=== PATIENT | male | born 1960 | race Caucasian/White ===

== ENCOUNTER 2017-07-31 12:57 | Inpatient (IN) | payer OTHER ==
[~2017-07-31] VITALS: Ht 182.9 cm; Wt 94.6 kg
[2017-07-31] MEDS ORDERED: PIPER-TAZ 3.375 GM 50 ML IV STA (13:09)
[2017-07-31] MEDS ORDERED: SODIUM CHLORIDE 0.9% 1000ML 1,000 ML IV STA (13:09)
[2017-07-31] MEDS ORDERED: HYDROCODONE/APAP 10MG-325MG TAB PO ONE (13:15)
[2017-07-31 14:28] LABS: BASOPHILS % 0.6 % (0.0-1.0); EOSINOPHILS # (AUTO) 0.3 (0.0-0.4); EOSINOPHILS % 4.5 % (0.0-6.0); HEMATOCRIT 36.1 % (38.2-49.6); HEMOGLOBIN 12.5 g/dL (14.0-18.0); LYMPHOCYTES # (AUTO) 0.8 (1.0-3.2); LYMPHOCYTES % 11.8 % (18.0-39.1); MEAN CORPUSCULAR HEMOGLOBIN 31.5 pg (28-32); MEAN CORPUSCULAR HGB CONC 34.6 g/dL (31-35); MEAN CORPUSCULAR VOLUME 90.9 fL (81-99); MONOCYTES % 14.1 % (4.4-11.3); NEUTROPHILS # (AUTO) 4.7 (2.1-6.9); NEUTROPHILS % 68.4 % (38.7-80.0); PLATELET COUNT 138 x10e3/uL (140-360); RED BLOOD COUNT 3.97 x10e6/uL (4.3-5.7); RED CELL DISTRIBUTION WIDTH 12.3 % (11.7-14.4)
[2017-07-31 14:44] LABS: ALBUMIN 3.2 g/dL (3.5-5.0); ALBUMIN/GLOBULIN RATIO 0.9 (0.8-2.0); ANION GAP 12.8 mmol/L (8-16); CALCIUM 8.7 mg/dL (8.4-10.2); CREATININE, SERUM 1.45 mg/dL (0.72-1.25); POTASSIUM 3.8 mmol/L (3.5-5.1)
[2017-07-31] MEDS ORDERED: SODIUM CHLORIDE FLUSH 10 ML SYR INJ PRN (16:15)
[2017-07-31] MEDS ORDERED: MORPHINE SULFATE 2 MG/ML SYR IV PRN (16:15)
[2017-07-31] MEDS: VANCOMYCIN 1GM/NS 250 ML 250 ML IV SCH (17:17)
--- NOTE | 2017-07-31 17:50 | Diagnostic Imaging Report ---
PROCEDURE: X-RAY LEFT KNEE, THREE OR MORE VIEWS COMPARISON: None INDICATIONS:INFECTION, SWELLING FINDINGS: See conclusion. CONCLUSION: Status post yegod-ivy-oska amputation. Overlying surgical drain/wound VAC with diffuse soft tissue swelling and subcutaneous gas at the drain site. Soft tissue swelling compared to prior examination. This likely represents cellulitis. Surgical margins remains intact. Chronic appearing periosteal reaction at the surgical margin. Dictated by: Lee Holcomb M.D. on 07/31/2017 at 17:59 Electronically approved by: Lee Holcomb M.D. on 07/31/2017 at 17:59
[2017-07-31] MEDS: PIPER-TAZ 3.375 GM 50 ML IV SCH (21:44)
[2017-08-01] VITALS (11 sets, daily range): BP systolic 102–167; BP diastolic 51–123
[2017-08-01] MEDS ORDERED: SOMA350 MG PO (00:28)
[2017-08-01] MEDS ORDERED: NORVASC5 MG PO (00:31)
[2017-08-01] MEDS ORDERED: METOPROLOL TART50 MG PO ×2 (00:31)
[2017-08-01] MEDS ORDERED: MELOXICAM7.5 MG PO (00:31)
[2017-08-01] MEDS ORDERED: CLONIDINE HCL0.2 MG PO (00:31)
[2017-08-01] MEDS ORDERED: LISINOPRIL10 MG PO (00:31)
[2017-08-01] MEDS: CARISOPRODOL 350 MG TAB PO PRN ×3 (01:12→21:29)
[2017-08-01] MEDS ORDERED: CLONIDINE HCL 0.2 MG TAB PO PRN (02:00)
[2017-08-01] MEDS ORDERED: CLONIDINE HCL 0.2 MG TAB PO SCH (02:00)
[2017-08-01] MEDS: MORPHINE SULFATE 4 MG/ML SYR IV PRN ×2 (02:06→06:10)
[2017-08-01] MEDS: PIPER-TAZ 3.375 GM 50 ML IV SCH ×3 (05:47→21:30)
[2017-08-01 06:50] LABS: BASOPHILS % 0.5 % (0.0-1.0); EOSINOPHILS # (AUTO) 0.3 (0.0-0.4); EOSINOPHILS % 4.2 % (0.0-6.0); HEMATOCRIT 36.3 % (38.2-49.6); HEMOGLOBIN 12.2 g/dL (14.0-18.0); LYMPHOCYTES # (AUTO) 1.1 (1.0-3.2); LYMPHOCYTES % 19.3 % (18.0-39.1); MEAN CORPUSCULAR HEMOGLOBIN 30.8 pg (28-32); MEAN CORPUSCULAR HGB CONC 33.6 g/dL (31-35); MEAN CORPUSCULAR VOLUME 91.7 fL (81-99); MONOCYTES % 17.6 % (4.4-11.3); NEUTROPHILS # (AUTO) 3.4 (2.1-6.9); NEUTROPHILS % 57.7 % (38.7-80.0); PLATELET COUNT 149 x10e3/uL (140-360); RED BLOOD COUNT 3.96 x10e6/uL (4.3-5.7); RED CELL DISTRIBUTION WIDTH 12.2 % (11.7-14.4)
[2017-08-01 07:18] LABS: ALBUMIN/GLOBULIN RATIO 0.9 (0.8-2.0); ANION GAP 14.1 mmol/L (8-16); CALCIUM 8.9 mg/dL (8.4-10.2); CREATININE, SERUM 1.37 mg/dL (0.72-1.25); POTASSIUM 4.1 mmol/L (3.5-5.1)
[2017-08-01] MEDS ORDERED: XARELTO10 MG PO (08:25)
[2017-08-01 08:36] LABS: BILIRUBIN,URINE NEGATIVE (NEGATIVE); KETONES,URINE NEGATIVE (NEGATIVE); LEUKOCYTE ESTERASE ,URINE NEGATIVE (NEGATIVE); NITRITE,URINE NEGATIVE (NEGATIVE); PROTEIN,URINE DIPSTICK NEGATIVE (NEGATIVE); URINE UROBILINOGEN 0.2 mg/dL (0.2 - 1)
[2017-08-01 08:50] LABS: CLARITY,URINE CLEAR (CLEAR); COLOR,URINE YELLOW (YELLOW)
[2017-08-01 08:51] LABS: EPITHELIAL CELLS,URINE RARE /LPF; WBC,URINE (MAN) 0-5 /HPF (0-5)
[2017-08-01] MEDS: LISINOPRIL 10 MG TAB PO SCH (09:00)
[2017-08-01] MEDS: METOPROLOL TARTRATE 50 MG TAB PO SCH ×2 (09:00→20:02)
[2017-08-01] MEDS: MELOXICAM 7.5 MG TAB PO SCH (09:00)
[2017-08-01] MEDS ORDERED: AMLODIPINE BESYLATE 5 MG TAB PO SCH (09:00)
[2017-08-01] MEDS: HYDROCODONE/APAP 10MG-325MG TAB PO PRN ×2 (14:10→21:30)
[2017-08-01] MEDS ORDERED: RIVAROXABAN 10 MG TABLET PO SCH (16:30)
[2017-08-01] MEDS: VANCOMYCIN 1GM/NS 250 ML 250 ML IV SCH (16:58)
[2017-08-01] MEDS: LISINOPRIL 20 MG TAB PO SCH (16:58)
[2017-08-01] MEDS: MORPHINE SULFATE 5 MG/ML VIAL IV PRN (20:02)
[2017-08-01] MEDS: ONDANSETRON HCL INJ 2 MG/ML VIAL IV PRN (20:02)
[2017-08-01] MEDS ORDERED: SODIUM CHLORIDE 0.9% 250ML 250 ML ONE (21:33)
[2017-08-01] MEDS ORDERED: NIFEDIPINE CR 30 MG TAB PO ONE (21:45)
--- NOTE | 2017-08-01 23:15 | History and Physical ---
CHIEF COMPLAINT: Left stump infection. HPI: This is a 57-year-old male with past medical history of hypertension with left BKA back in 1996, now presents with a left stump infection. Patient reports that about 2 weeks ago he was in [facility] in which he had a necrotic area on his left stump, in which he was surgically debrided and incision and drainage was performed, and was sent out after 8 days of being in the hospital with IV antibiotics and a wound VAC. Patient was on IV vancomycin and Zosyn at [facility]. He was discharged on the wound VAC and IV antibiotics. Patient reports that over the last several days he noticed that his left stump has been having a foul odor with worsening discoloration and presented to his PCP's office which then he was referred to an infectious disease doctor, Dr. Portillo, for further evaluation. His left foot had significant odor and was brought in for further evaluation. Here, wound care did a bedside debridement and MRI of the left stump has been ordered. REVIEW OF SYSTEMS: Pertinent positive: Left stump infection. Pertinent negative: Denies chest pain, palpitation, nausea, vomiting, diarrhea, dysuria, hematuria, frequency, urgency, lightheadedness, dizziness, abdominal pain, headache, shortness of breath or any other complaints. The rest of the 14-point review of systems have been reviewed with the patient and are negative. ALLERGIES: NO KNOWN DRUG ALLERGIES. HOME MEDICATIONS 1. Norvasc 5 mg daily. 2. Soma 350 mg every 6 hours as needed for muscle spasms. 3. Clonidine 0.2 mg 1 tab every 4 hours as needed for systolic blood pressure greater than 140. 4. Lisinopril 20 mg b.i.d. 5. Meloxicam 15 mg daily. 6. Metoprolol tartrate 100 mg in the morning and 50 mg at night. 7. Xarelto 20 mg daily. PAST MEDICAL HISTORY: He has AFib, hypertension, chronic pain, left BKA, and left stump infection. PAST SURGICAL HISTORY: Left stump amputation with recent surgical debridement 2 weeks ago, left BKA back in 1996. FAMILY HISTORY: Hypertension and diabetes. SOCIAL HISTORY: Does not smoke. No drugs, no alcohol. Good social support. PHYSICAL EXAMINATION VITAL SIGNS: Temperature is 96.5, pulse is 100, blood pressure 167/100, and pulse ox 98% on room air. GENERAL: Not in acute distress. Alert and oriented times 3. Cooperative on exam. HEENT: Head is normocephalic, atraumatic. Eyes: Pupils equal, round, and reactive to light bilaterally. Extraocular movements intact bilaterally. Throat: No evidence of any erythema or exudate in the posterior pharynx. Has poor dentition. NECK: Supple with good range of motion. PULMONARY: Clear to auscultation bilaterally. No wheezing, no rales, no rhonchi, no crackles appreciated. CARDIOVASCULAR: Positive S1 and S2. No murmurs, rubs, or gallops appreciated. ABDOMEN: Soft, nondistended, and nontender on palpation. Bowel sounds present. MUSCULOSKELETAL: Strength is 5/5 throughout. No evidence of any musculoskeletal deficit on examination. No weakness appreciated. NEUROLOGIC: Cranial nerves II through XII grossly intact. No evidence of any neurological deficit on exam. SKIN: Intact. Warm to touch. Good capillary refill. PSYCHIATRIC: Normal affect and mood. EXTREMITIES: Left BKA with redness with wrapping. LAB FINDINGS: White count of 5.9, hemoglobin 12.2, hematocrit 36.3, and platelets of 149,000. Chemistry: Sodium 135, potassium 4.1, chloride 101, bicarb 24, anion gap of 14, BUN is 16, creatinine is 1.37, and glucose 97. Lactic acid 7.8 normal, calcium 8.9. LFTs are slightly elevated. Total bilirubin 0.3, AST 101, ALT 112. Total protein 6.5, albumin is 3. Urinalysis was negative. Microbiology, blood cultures negative. Wound cultures are pending. IMAGING STUDIES: He had an x-ray of the knee that showed some soft tissue swelling, likely representing a cellulitis, concerning for underlying subcutaneous gas and also has a wound VAC. MRI of the left stump has been ordered. IMPRESSIONS 1. Left stump infection, concerning for osteomyelitis, blood cultures no growth today. Intravenous Zosyn and vancomycin. Get vancomycin trough before the next dose which is tomorrow at 5 p.m. MRI of the left stump with and without contrast; infectious disease is consulted and following as well as general surgery consulted. 3. Hypertension, currently elevated. Discontinue Norvasc. Continue same home medications of metoprolol. Add nifedipine XL 30 mg daily, 1st dose now, p.r.n. hydralazine. 4. History of atrial fibrillation, continue with rate control medications. Continue with Xarelto. 5. Chronic pain syndrome, continue with pain control as well as Soma. 6. Prophylaxis, Xarelto. 7. Fluid, electrolyte, nutrients, heart healthy diet. No intravenous fluids indicated. DISPOSITION: Inpatient, general surgery and ID consulted. Patient will likely be here for several more days to evaluate for wound cultures as well as likely will further surgical debridement and await for MRI of the left stump. Job#: [id number]
--- NOTE | 2017-08-01 23:52 | Consultation ---
DATE OF CONSULTATION: REASON FOR CONSULTATION: Cellulitis of the stump and the patient has history of osteomyelitis with the stump on IV antibiotics. HISTORY OF PRESENT ILLNESS: This patient is a 57-year-old gentleman, who has history of xsjvi-yga-ssee amputation for some 20 years after an accident. Then, he has been doing good, but he had a new prosthesis small ulcers since May is getting progressively worse. He was admitted to [facility] underwent debridement by Dr. More. He was on IV antibiotic and discharged home with IV antibiotic. He is coming to me with worsening condition. The redness and swelling. I felt the redness and swelling in the stump we he had a long discussion in the office. He may end up with xznih-jvh-daxj amputation, but he be admitted for further workup including MRI and cultures. So, patient came to emergency room, where he is being admitted. PAST MEDICAL HISTORY: Hypertension. Mnhle-zfa-qnhg amputation. PAST SURGICAL HISTORY: Hizsr-wge-auqa amputation. ALLERGIES: NKA. SOCIAL HISTORY: There is no smoking, drug abuse, alcohol abuse. FAMILY HISTORY: Otherwise unremarkable. REVIEW OF SYSTEMS HEENT: There is no headache, visual changes, hearing changes. GI: There is no nausea, no vomiting, no diarrhea. CARDIAC: There is no chest pain. All within normal limits except the pain and the redness and the swelling in his stump. MEDICATION: List reviewed. LABORATORY DATA: Reviewed. His white count 6.89, hemoglobin 12, hematocrit 36.1. His sodium 131, potassium 3.8, creatinine 1.45. AST 89, ALT 85. PHYSICAL EXAMINATION GENERAL: He is currently alert, oriented, does not seem to be in acute distress. VITALS: Stable. Currently afebrile. HEENT: He is atraumatic, normocephalic. NECK: Supple. No JVD, no , no thyromegaly. CHEST: Clear bilateral. COR: S1 and S2. No murmur. ABDOMEN: Soft. Positive bowel sounds present. No tenderness. EXTREMITIES: There is erythema. There is edema on the stump. He has been getting wound VAC and IV antibiotic as mentioned above. IMPRESSION: Infection of the stump. I am going to recommend wound cultures. Obtain a magnetic resonance imaging. Agree with vancomycin and Zosyn. Will adjust for his kidney function. Obtain a sed rate, C-reactive protein. Thank you for asking me to see this patient. Job#: [id number] CQ
[2017-08-02] VITALS: BP 185/100
[2017-08-02] MEDS: HYDRALAZINE HCL 20 MG/ML VIAL IV PRN (00:59)
[2017-08-02] MEDS: MORPHINE SULFATE 5 MG/ML VIAL IV PRN ×3 (01:28→21:16)
[2017-08-02] MEDS: ONDANSETRON HCL INJ 2 MG/ML VIAL IV PRN ×3 (01:29→21:16)
[2017-08-02] MEDS: PIPER-TAZ 3.375 GM 50 ML IV SCH ×3 (05:27→21:16)
[2017-08-02] MEDS ORDERED: SODIUM CHLORIDE 0.9% 50ML 50 ML ONE (05:39)
[2017-08-02 08:36] VITALS: BP 138/96
[2017-08-02] MEDS ORDERED: NIFEDIPINE CR 30 MG TAB PO SCH (09:00)
[2017-08-02] MEDS: METOPROLOL TARTRATE 50 MG TAB PO SCH ×2 (09:33→20:47)
[2017-08-02] MEDS: MELOXICAM 7.5 MG TAB PO SCH (09:33)
[2017-08-02] MEDS: LISINOPRIL 20 MG TAB PO SCH ×2 (09:33→16:56)
--- NOTE | 2017-08-02 10:28 | Diagnostic Imaging Report ---
PROCEDURE: A single AP view of the chest. COMPARISON: None. INDICATIONS: PICC LINE PLACEMENT FINDINGS: Lines/tubes: Right-sided PICC with its tip terminating near the cavoatrial junction. Lungs: The lungs are well inflated and clear. There is no evidence of pneumonia or pulmonary edema. Pleura: There is no pleural effusion or pneumothorax. Heart and mediastinum: The heart is unremarkable. Mediastinal prominence secondary to the portable technique. Bones: No acute bony abnormality. IMPRESSION: 1. No acute cardiopulmonary disease. 2. Right-sided PICC as described above. Avel Lucero D.O. Dictated by: Avel Lucero D.O. on 08/02/2017 at 10:37 Electronically approved by: Avel Lucero D.O. on 08/02/2017 at 10:37
[2017-08-02 11:47] VITALS: BP 129/96
[2017-08-02] MEDS ORDERED: GADOBENATE DIMEGLUMINE 1 ML IV ONE (13:47)
[2017-08-02] MEDS: CARISOPRODOL 350 MG TAB PO PRN (15:50)
[2017-08-02] MEDS: HYDROCODONE/APAP 10MG-325MG TAB PO PRN (15:50)
--- NOTE | 2017-08-02 16:43 | Diagnostic Imaging Report ---
TECHNIQUE: Magnetic resonance imaging of the LEFT KNEE was performed WITH and WITHOUT injected contrast, 20 cc of intravenous MultiHance. HISTORY: Infection, please image left stump for concern for infection and osteomyelitis COMPARISON: None available. FINDINGS: LIGAMENTS AND TENDONS: ACL: Intact PCL: Intact Collateral ligaments: Intact Iliotibial band: Unremarkable Popliteal tendon: Intact Extensor mechanism: Intact JOINT: Menisci: Medial: Intact Lateral: Intact Articular Cartilage: Medial Compartment: Low-grade erosion of the weightbearing cartilage. Lateral Compartment: No discrete focal defect. Patellofemoral Compartment: No discrete focal defect. Joint Fluid: The amount of fluid within the joint is within physiologic limits. BONES: No focal or infiltrative bone marrow replacing abnormality. No acute fracture. Status post below the knee indication the level of the proximal tibial diaphysis. Partially fused bipartite patella. SOFT TISSUES: Large soft tissue defect overlying the anterior aspect of the distal tibial stump. Regional air foci. Prominent diffuse soft tissue edema, no drainable fluid collection. IMPRESSION: 1. No evidence of acute/active osteomyelitis. 2. No drainable soft tissue abscess. 3. Large soft tissue defect with prominent diffuse edema. Signed by: Dr. Huber Fagan D.O., M.M.M. on 08/02/2017 4:39 PM
[2017-08-02] MEDS: VANCOMYCIN 1GM/NS 250 ML 250 ML IV SCH (16:57)
[2017-08-02 17:03] VITALS: BP 153/119
[2017-08-02] MEDS ORDERED: ALTEPLASE RECOMBINANT 2 MG/2 ML VIAL IV ONE ×2 (19:30)
[2017-08-02 20:00] VITALS: BP 177/100
[2017-08-02 23:22] VITALS: BP 177/100
[2017-08-03] VITALS: BP 134/83
[2017-08-03] MEDS: CARISOPRODOL 350 MG TAB PO PRN ×3 (00:50→21:20)
[2017-08-03] MEDS: HYDROCODONE/APAP 10MG-325MG TAB PO PRN ×3 (00:50→21:20)
[2017-08-03 04:00] VITALS: BP 146/92
[2017-08-03] MEDS: PIPER-TAZ 3.375 GM 50 ML IV SCH ×3 (06:21→21:58)
[2017-08-03] MEDS: MORPHINE SULFATE 5 MG/ML VIAL IV PRN ×2 (06:46→16:42)
[2017-08-03 07:53] VITALS: BP 150/115
[2017-08-03] MEDS: METOPROLOL TARTRATE 50 MG TAB PO SCH ×2 (08:30→20:28)
[2017-08-03] MEDS: MELOXICAM 7.5 MG TAB PO SCH (08:30)
[2017-08-03] MEDS: LISINOPRIL 20 MG TAB PO SCH ×2 (08:31→16:43)
[2017-08-03 08:39] LABS: BASOPHILS # (AUTO) 0.1 (0.0-0.1); BASOPHILS % 0.7 % (0.0-1.0); EOSINOPHILS # (AUTO) 0.3 (0.0-0.4); EOSINOPHILS % 4.1 % (0.0-6.0); HEMATOCRIT 38.6 % (38.2-49.6); HEMOGLOBIN 13.1 g/dL (14.0-18.0); LYMPHOCYTES # (AUTO) 0.9 (1.0-3.2); MEAN CORPUSCULAR HEMOGLOBIN 30.8 pg (28-32); MEAN CORPUSCULAR HGB CONC 33.9 g/dL (31-35); MEAN CORPUSCULAR VOLUME 90.8 fL (81-99); MONOCYTES # (AUTO) 1.5 (0.2-0.8); MONOCYTES % 20.1 % (4.4-11.3); NEUTROPHILS # (AUTO) 4.7 (2.1-6.9); NEUTROPHILS % 62.4 % (38.7-80.0); PLATELET COUNT 212 x10e3/uL (140-360); RED BLOOD COUNT 4.25 x10e6/uL (4.3-5.7); RED CELL DISTRIBUTION WIDTH 12.5 % (11.7-14.4)
[2017-08-03 08:57] LABS: ANION GAP 11.9 mmol/L (8-16); CALCIUM 8.8 mg/dL (8.4-10.2); CREATININE, SERUM 1.33 mg/dL (0.72-1.25); POTASSIUM 3.9 mmol/L (3.5-5.1)
[2017-08-03 11:20] VITALS: BP 121/102
[2017-08-03] MEDS: VANCOMYCIN 1GM/NS 250 ML 250 ML IV SCH (12:52)
[2017-08-03 13:29] LABS: ANISOCYTOSIS SLIGHT; BAND NEUTROPHILS % (MANUAL) 1 %; EOSINOPHILS % (MANUAL) 4 % (0-7); LYMPHOCYTES % (MANUAL) 12 % (19-48); MONOCYTES % (MANUAL) 18 % (3.4-9.0); NEUTROPHILS % (MANUAL) 65 % (40-74); PLATELET ESTIMATE ADEQUATE; PLATELET MORPHOLOGY COMMENT NORMAL; RBC MORPHOLOGY COMMENT NORMAL
[2017-08-03 15:38] VITALS: BP 133/109
[2017-08-03] MEDS: RIVAROXABAN 20 MG TABLET PO SCH (16:42)
[2017-08-03] MEDS: ONDANSETRON HCL INJ 2 MG/ML VIAL IV PRN (16:42)
[2017-08-03 20:00] VITALS: BP 179/139
[2017-08-04] VITALS (9 sets, daily range): BP systolic 137–162; BP diastolic 98–118
--- NOTE | 2017-08-04 00:01 | Consultation ---
DATE OF CONSULTATION: August 03, 2017 CHIEF COMPLAINT: Left BKA stump wound infection. HISTORY OF PRESENT ILLNESS: This patient is a 57-year-old gentleman with history of left BKA from accidental injury. The patient was doing well until last May when he developed an ulcer after using a new prosthesis. The wound has progressed to the point of infection requiring surgical debridement and a course of IV antibiotics without improvement. He has noted increased swelling and discharge and tenderness in the area requiring hospitalization. PAST MEDICAL HISTORY: Significant for hypertension, atrial fibrillation. SURGICAL HISTORY: Positive for left BKA 20 years ago. Recent debridement. ALLERGIES: THE PATIENT HAS NO DRUG ALLERGIES. SOCIAL HABITS: The patient does not smoke or drink alcohol. REVIEW OF SYSTEMS: He denied chest pain, shortness of breath, or cough. PHYSICAL EXAMINATION: VITAL SIGNS: Stable. He is afebrile. GENERAL: The patient is awake, alert, in no apparent distress. HEENT: Sclerae nonicteric. NECK: Supple. LUNGS: Clear to auscultation. HEART: Irregular rate and rhythm. No murmurs. ABDOMEN: Soft, nontender. EXTREMITIES: Showed a left BKA stump wrapped with a wound VAC appliance in place. Minimal discharge noted. LABS: White cell count is 7 with hemoglobin of 13. Creatinine is 1.3. X-ray of the knee showed soft tissue swelling with evidence of cellulitis and periosteal reaction. MRI showed no evidence of osteomyelitis or abscess formation. ASSESSMENT: Left ivccb-dbv-ymmr amputation stump wound infection with no drainable abscess. Currently treated with wound vacuum-assisted closure and antibiotics. PLAN: Continue the same. Further treatment depends on progression of healing with wound VAC therapy. Thank you for consultation. Job#: [id number]
[2017-08-04] MEDS: VANCOMYCIN 1GM/NS 250 ML 250 ML IV SCH ×2 (00:23→14:57)
[2017-08-04] MEDS: MORPHINE SULFATE 5 MG/ML VIAL IV PRN ×2 (03:08→14:55)
[2017-08-04] MEDS: HYDRALAZINE HCL 20 MG/ML VIAL IV PRN ×2 (05:10→23:44)
[2017-08-04] MEDS: PIPER-TAZ 3.375 GM 50 ML IV SCH ×3 (05:10→21:38)
[2017-08-04] MEDS: HYDROCODONE/APAP 10MG-325MG TAB PO PRN ×2 (08:45→21:42)
[2017-08-04] MEDS: CARISOPRODOL 350 MG TAB PO PRN ×2 (08:45→21:42)
[2017-08-04] MEDS: METOPROLOL TARTRATE 50 MG TAB PO SCH ×2 (09:25→21:38)
[2017-08-04] MEDS: LISINOPRIL 20 MG TAB PO SCH ×2 (09:25→17:50)
[2017-08-04] MEDS: MELOXICAM 7.5 MG TAB PO SCH (09:25)
[2017-08-04] MEDS ORDERED: ACETAMINOPHEN 325 MG TAB PO PRN (10:15)
[2017-08-04] MEDS ORDERED: DOCUSATE SODIUM 100 MG CAP PO ONE (11:00)
[2017-08-04] MEDS ORDERED: CITRATE OF MAGNESIA 300ML BOTTLE PO ONE (11:00)
[2017-08-04] MEDS: RIVAROXABAN 20 MG TABLET PO SCH (17:49)
[2017-08-05] VITALS (7 sets, daily range): BP systolic 123–173; BP diastolic 82–118
[2017-08-05] MEDS: VANCOMYCIN 1GM/NS 250 ML 250 ML IV SCH ×2 (00:25→12:30)
[2017-08-05] MEDS: MORPHINE SULFATE 4 MG/ML SYR IV PRN (00:26)
[2017-08-05] MEDS: PIPER-TAZ 3.375 GM 50 ML IV SCH ×3 (05:38→21:16)
[2017-08-05] MEDS: LISINOPRIL 20 MG TAB PO SCH ×2 (09:11→17:31)
[2017-08-05] MEDS: MELOXICAM 7.5 MG TAB PO SCH (09:11)
[2017-08-05] MEDS: METOPROLOL TARTRATE 50 MG TAB PO SCH (09:11)
[2017-08-05] MEDS ORDERED: DOCUSATE SODIUM 100 MG CAP PO ONE (10:00)
[2017-08-05] MEDS ORDERED: CITRATE OF MAGNESIA 300ML BOTTLE PO ONE (10:30)
[2017-08-05] MEDS: AMLODIPINE BESYLATE 10 MG TAB PO SCH (10:38)
[2017-08-05] MEDS: CARISOPRODOL 350 MG TAB PO PRN ×2 (13:32→20:42)
[2017-08-05] MEDS: HYDROCODONE/APAP 10MG-325MG TAB PO PRN ×2 (13:32→20:42)
[2017-08-05] MEDS: METOPROLOL SUCCINATE 50 MG TAB XL PO SCH (17:31)
[2017-08-05] MEDS: RIVAROXABAN 20 MG TABLET PO SCH (17:31)
[2017-08-06] MEDS: VANCOMYCIN 1GM/NS 250 ML 250 ML IV SCH ×3 (01:26→23:36)
[2017-08-06] MEDS: MORPHINE SULFATE 4 MG/ML SYR IV PRN ×2 (01:27→15:21)
[2017-08-06 05:05] VITALS: BP 162/120
[2017-08-06] MEDS: PIPER-TAZ 3.375 GM 50 ML IV SCH ×3 (05:11→21:22)
[2017-08-06 05:12] VITALS: BP 182/116
[2017-08-06] MEDS: HYDROCODONE/APAP 10MG-325MG TAB PO PRN ×3 (06:44→23:37)
[2017-08-06] MEDS: CARISOPRODOL 350 MG TAB PO PRN ×2 (06:45→23:36)
[2017-08-06 07:10] LABS: BASOPHILS # (AUTO) 0.1 (0.0-0.1); BASOPHILS % 0.9 % (0.0-1.0); EOSINOPHILS # (AUTO) 0.3 (0.0-0.4); EOSINOPHILS % 3.2 % (0.0-6.0); HEMATOCRIT 40.8 % (38.2-49.6); HEMOGLOBIN 13.6 g/dL (14.0-18.0); LYMPHOCYTES # (AUTO) 1.2 (1.0-3.2); LYMPHOCYTES % 14.8 % (18.0-39.1); MEAN CORPUSCULAR HEMOGLOBIN 30.4 pg (28-32); MEAN CORPUSCULAR HGB CONC 33.3 g/dL (31-35); MEAN CORPUSCULAR VOLUME 91.3 fL (81-99); MONOCYTES # (AUTO) 1.4 (0.2-0.8); MONOCYTES % 17.6 % (4.4-11.3); NEUTROPHILS # (AUTO) 4.9 (2.1-6.9); PLATELET COUNT 257 x10e3/uL (140-360); RED BLOOD COUNT 4.47 x10e6/uL (4.3-5.7); RED CELL DISTRIBUTION WIDTH 12.7 % (11.7-14.4)
[2017-08-06 07:48] LABS: ANION GAP 15.8 mmol/L (8-16); CREATININE, SERUM 1.36 mg/dL (0.72-1.25); POTASSIUM 3.8 mmol/L (3.5-5.1)
[2017-08-06] MEDS: MELOXICAM 7.5 MG TAB PO SCH (08:24)
[2017-08-06] MEDS: AMLODIPINE BESYLATE 10 MG TAB PO SCH (08:25)
[2017-08-06] MEDS: METOPROLOL SUCCINATE 50 MG TAB XL PO SCH (08:25)
[2017-08-06] MEDS: LISINOPRIL 20 MG TAB PO SCH ×2 (08:25→16:40)
[2017-08-06 10:20] VITALS: BP 136/91
[2017-08-06] MEDS ORDERED: METOPROLOL SUCCINATE 50 MG TAB XL PO ONE (10:30)
[2017-08-06] MEDS ORDERED: SODIUM CHLORIDE 0.9% 250ML 250 ML ONE (12:50)
[2017-08-06] MEDS ORDERED: MORPHINE SULFATE 2 MG/ML SYR ONE (14:59)
[2017-08-06] MEDS: ONDANSETRON HCL INJ 2 MG/ML VIAL IV PRN (15:21)
[2017-08-06] MEDS: RIVAROXABAN 20 MG TABLET PO SCH (16:40)
[2017-08-06] MEDS ORDERED: METOPROLOL SUCCINATE 50 MG TAB XL PO SCH (17:00)
[2017-08-06 20:00] VITALS: BP 155/100
[2017-08-07] VITALS: BP 151/112
[2017-08-07 00:27] VITALS: BP 151/112
[2017-08-07] MEDS ORDERED: MORPHINE SULFATE 2 MG/ML SYR ONE (01:34)
[2017-08-07] MEDS: ONDANSETRON HCL INJ 2 MG/ML VIAL IV PRN (01:36)
[2017-08-07] MEDS: MORPHINE SULFATE 4 MG/ML SYR IV PRN (01:36)
[2017-08-07 04:00] VITALS: BP 162/121
[2017-08-07] MEDS: HYDRALAZINE HCL 20 MG/ML VIAL IV PRN (05:17)
[2017-08-07] MEDS: PIPER-TAZ 3.375 GM 50 ML IV SCH ×2 (05:17→14:00)
[2017-08-07 06:42] VITALS: BP 153/112
[2017-08-07 08:14] VITALS: BP 120/85
[2017-08-07] MEDS: MELOXICAM 7.5 MG TAB PO SCH (08:47)
[2017-08-07] MEDS: AMLODIPINE BESYLATE 10 MG TAB PO SCH (08:48)
[2017-08-07] MEDS: LISINOPRIL 20 MG TAB PO SCH (08:48)
[2017-08-07] MEDS: VANCOMYCIN 1GM/NS 250 ML 250 ML IV SCH (11:34)
[2017-08-07 12:06] VITALS: BP 141/85
--- NOTE | 2017-08-07 14:50 | Discharge Summary ---
FINAL DISCHARGE DIAGNOSES 1. Infected left below-knee amputation, status post incision and drainage. 2. Hypertension. 3. Atrial fibrillation. 4. Debilitated. 5. Constipation. CONSULTANTS: ID and general surgery. VITAL SIGNS: Temperature is 99.3, pulse is 63, respiratory rate is 16, blood pressure is 120/85, and pulse ox 98% on room air. LABORATORY FINDINGS: White count 7.7, hemoglobin is 13.6, hematocrit is 41, platelets of 257. Chemistries; sodium 136, potassium 3.8, chloride 103, bicarbonate 21, anion gap 15, BUN is 15, creatinine is 1.3, glucose is 101. Lactic acid was normal. His LFTs were slightly elevated. CRP was 36, albumin was 3. Urinalysis was negative. MICROBIOLOGY: Blood cultures were negative times 4 set. Urine cultures negative. Urine culture was positive for Enterobacter cloacae and MRSA staph aureus as well as coagulase-negative staph and Stenotrophomonas maltophilia. IMAGING STUDIES: Knee x-ray showed some soft tissue swelling on the left knee. Chest x-ray was negative. MRI of the left knee, no evidence of acute active osteomyelitis. No drainable soft tissue abscess. Large soft tissue defect with prominent diffuse edema. HOSPITAL COURSE: This is a 57-year-old male with known left BKA several years ago, who was recently admitted to at [facility] several weeks ago and had an incision and drainage and was discharged home with a wound VAC. Patient had home health, had continuous worsening infection in the left stump, and came here to be further evaluated. ID was consulted. Patient had a bedside I and D performed by the wound care nurse and sent for culture. Wound culture results above and patient continued to be on IV antibiotics. Per ID, patient needs to go home on IV vancomycin 1 gram q.12 as well as cefepime 1 gram q.12 for 3 weeks and needs to follow up closely with ID in their office in 1-2 weeks. Patient will continue with wound VAC. Wound care clinic has been arranged for the patient as well. Patient was doing well with no other complaints. On the day of discharge, vital signs stable, labs remained stable. Patient was seen, evaluated, and examined thoroughly on the day of discharge, no other complaints. Patient verbalized understanding and agrees with plan of care to follow up accordingly as an outpatient with ID in 1-2 weeks as well as wound care clinic, which was already arranged for him and his PCP in 1 week. DISCHARGE MEDICATIONS: See medicine reconciliation form. DISPOSITION: To home. CONDITION: Stable. DIET: Heart healthy. FOLLOWUP: With your primary care physician in 1 week, ID in 1-2 weeks, and wound care clinic already set up for him. In the event of any worsening symptom, patient advised to come back to the ED for further evaluation. Discharge summary took greater than 35 minutes. ALYCIA ROBERTS MD Job#: [id number] PAT
== END 2017-08-07 15:42 | disposition home or self-care (01) | DRG 565 ==
LOC: EDBD → ER 12:57 → EDBD 17:53 → ERHOLD 17:53 → IMCU 23:10 → OBSVTOIN 08-01 21:20 → MED/SURG3 08-01 22:17
PROVIDERS: ADMIT Internal Medicine; ATTEND Internal Medicine
DX: T87.44 Infection of amputation stump, left lower extremity (principal); E87.1 Hypo-osmolality and hyponatremia; I10 Essential (primary) hypertension; I48.2 Chronic atrial fibrillation; Z79.01 Long term (current) use of anticoagulants; K59.00 Constipation, unspecified; R53.81 Other malaise; B95.62 Methicillin resistant Staphylococcus aureus infection as the cause of diseases classified elsewhere; B96.89 Other specified bacterial agents as the cause of diseases classified elsewhere; Z89.512 Acquired absence of left leg below knee; G89.4 Chronic pain syndrome
CPT/HCPCS: 36415; 71045; 80048; 80053; 80202; 81001; 83605; 85025; 85651; 86140; 87040; 87071; 87086; 87186; 87205; 96365; 96367; 97605; 99284; G0378; J0360; J2270; J2405; J2543; J2997; J3370; J7030; J7050

== ENCOUNTER → 2017-09-05 | Outpatient (RCR) | payer OTHER ==
[~2017-09-05] MED LIST: CLONIDINE HCL0.2 MG PO; LIDOCAINE VISC 2% SOLN 15 ML UDC ONE; LIDOCAINE/PRILOCAINE 2.5-2.5% KIT ONE; LISINOPRIL10 MG PO; MELOXICAM7.5 MG PO; METOPROLOL TART50 MG PO; NORCO 10-325 T1 EACH PO; NORVASC5 MG PO; SOMA350 MG PO; XARELTO10 MG PO
== END ==
LOC: EDBD → WCC 08-09 09:32
PROVIDERS: ATTEND Plastic Surgery
DX: T87.44 Infection of amputation stump, left lower extremity (principal); T87.89 Other complications of amputation stump; M86.162 Other acute osteomyelitis, left tibia and fibula; I10 Essential (primary) hypertension; I48.2 Chronic atrial fibrillation
CPT/HCPCS: 87071; 87075; 87186; 87205

== ENCOUNTER 2017-09-06 11:00 | Inpatient (IN) | payer OTHER ==
[~2017-09-06] VITALS: Ht 182.9 cm; Wt 88.5 kg
[~2017-09-06 11:00] MED LIST changes: -LIDOCAINE VISC 2% SOLN 15 ML UDC ONE; -LIDOCAINE/PRILOCAINE 2.5-2.5% KIT ONE; -NORCO 10-325 T1 EACH PO
--- OUTSIDE RECORDS SUMMARY | 2017-09-06 11:04 | XMS REPORT ---
Author Author [facility] Address Unknown Phone Unavailable Care Team Providers Care Shank Inspector Name Role Phone ALYCIA ROBERTS Unavailable Unavailable Problems This patient has no known problems. Allergies, Adverse Reactions, Alerts This patient has no known allergies or adverse reactions. Medications This patient has no known medications. Results Test Description Test Time Test Comments Text Results Atomic Results Result Comments MRI KNEE LEFT WWO [place] [address] Patient Name: TRANG PALOMINO MR #: [id number] : 1960 Age/Sex: 57/M Req # : [id number] Adm Physician: ALYCIA ROBERTS MD Ordered by: ALYCIA ROBERTS MD Report #: [id number] Location: MED/SURG3 Room/Bed: [facility] _ Procedure: [id number] MRI/MRI KNEE LEFT [facility] Exam Date: 08/02/17 Exam Time: 1425 REPORT STATUS: Signed TECHNIQUE: Magnetic resonance imaging of the LEFT KNEE was performed WITH and WITHOUT injected contrast, 20 cc of intravenous MultiHance. HISTORY: Infection, please image left stump for concern for infection and osteomyelitis COMPARISON: None available. FINDINGS: LIGAMENTS AND TENDONS: ACL: Intact PCL: Intact Collateral ligaments: Intact Iliotibial band: Unremarkable Popliteal tendon: Intact Extensor mechanism: Intact JOINT: Menisci: Medial: Intact Lateral: Intact Articular Cartilage : Medial Compartment: Low-grade erosion of the weightbearing cartilage. Lateral Compartment: No discrete focal defect. Patellofemoral Compartment: No discrete focal defect. Joint Fluid: The amount of fluid within the joint is within physiologic limits. BONES: No focal or infiltrative bone marrow replacing abnormality. No acute fracture. Status post below the knee indication the level of the proximal tibial diaphysis. Partially fused bipartite patella. SOFT TISSUES: Large soft tissue defect overlying the anterior aspect of the distal tibial stump. Regional air foci. Prominent diffuse soft tissue edema, no drainable fluid collection. IMPRESSION: 1. No evidence of acute/active osteomyelitis. 2. No drainable soft tissue abscess. 3. Large soft tissue defect with prominent diffuse edema. Signed by: Dr. Jovany Fagan D.O., M.M.M. on 08/02/2017 4:39 PM Dictated By: JOVANY FAGAN DO 38 Transcribed By: KELLIE on 08/02/171638 COPY TO: ALYCIA ROBERTS MD CHEST SINGLE (PORTABLE) [place] [address] Patient Name: TRANG PALOMINO MR #: [id number] : 1960 Age/Sex: 57/M Req #: [id number] Adm Physician: ALYCIA ROBERTS MD Ordered by: ALYCIA ROBERTS MD Report #: [id number] Location: [facility] Room/Bed: [facility] Procedure: [id number] DX/CHEST SINGLE (PORTABLE) Exam Date: 08/02/17 Exam Time: 0945 REPORT STATUS: Signed PROCEDURE: A single AP view of the chest. COMPARISON: None. INDICATIONS: PICC LINE PLACEMENT FINDINGS: Lines/tubes: Right -sided PICC with its tip terminating near the cavoatrial junction. Lungs: The lungs are well inflated and clear. There is no evidence of pneumonia or pulmonary edema. Pleura: There is no pleural effusion or pneumothorax. Heart and mediastinum: The heart is unremarkable. Mediastinal prominence secondary to the portable technique. Bones: No acute bony abnormality. IMPRESSION: 1. No acute cardiopulmonary disease. 2. Right-sided PICC as described above. Job Lucero D.O. Dictated by: Job Lucero D.O. on 08/02/2017 at 10:37 Electronically approved by: Job Lucero D.O. on 08/02/2017 at 10:37 Dictated By: JOB LUCERO DO 1037 Transcribed By: ANA on 08/02/17 1037 COPY TO: ALYCIA ROBERTS MD KNEE LEFT THREE VIEWS [place] [address] Patient Name: TRANG PALOMINO MR #: [id number] : 1960 Age/Sex: 57/M Req #: [id number] Adm Physician: Ordered by: ANDER KAPOOR STRUCTURAL DESIGNER Report #: [id number] Location: ER Room/Bed: Procedure: [id number] DX/KNEE LEFT THREE VIEWS Exam Date: 07/31/17 Exam Time: 1650 REPORT STATUS: Signed PROCEDURE: X-RAY LEFT KNEE, THREE OR MORE VIEWS COMPARISON: None INDICATIONS: INFECTION, SWELLING FINDINGS: See conclusion. CONCLUSION: Status post lakpx-rmg-kyew amputation. Overlying surgical drain/wound VAC with diffuse soft tissue swelling and subcutaneous gas at the drain site. Soft tissue swelling compared to prior examination. This likely represents cellulitis. Surgical margins remains intact. Chronic appearing periosteal reaction at the surgical margin. Dictated by: Love Sandoval M.D. on 2017 at 17:59 Electronically approved by: Love Sandoval M.D. on 07/31/2017 at 17:59 Dictated By: LOVE SANDOVAL MD 58 Transcribed By: ANA on 07/31/171758 COPY TO: ANDER KAPOOR NP
--- OUTSIDE RECORDS SUMMARY | 2017-09-06 11:04 | XMS REPORT | Continuity of Care Document ---
Author Author [facility] Organization [facility] Address [address] [place] [address] Phone Unavailable Care Team Providers Care Casino Runner Name Role Phone JULIA REESE MD PCP Insurance Providers Guarantor Antony Marino Address [address] [place] [address] Email PT DECLINED Payer [id number] (moKredit) Policy Number [id number] Subscriber's Name Antony Marino Relationship 18 Self / Same As Patient Group Number [id number] Group Name RETIRED Effective Date 10 Advance Directives Directive Response Recorded Date/Time Does the patient have an advance directive? No 08/01/17 4:39am If yes, is advance directive on file with [facility]? No 07/31/17 2:49pm If not on file with [facility] will patient provide a copy? No 07/31/17 2:49pm Do you have a Directive to Physician? No 08/07/17 3:53pm Do you have a Medical Power of Residential Door Installer? No 08/07/17 3:53pm Do you have an out of hospital Do Not Resuscitate Order? No 08/07/17 3:53pm Do you have any special needs we should be aware of? No 08/07/17 3:53pm Do you have a support person here with you today? No 08/07/17 3:53pm Did patient receive Notice of Privacy Practices? No 08/07/17 3:53pm Did patient receive patient rights and responsibilities? No 08/07/17 3:53pm Problems Medical Problem Onset Date Status Failure of outpatient treatment Unknown Visit for wound check Unknown Medications Current Home Medications Medication Dose Units Route Directions Days Qty Instructions Start Date Amlodipine Besylate (Norvasc) 5 Mg Tab 5 Mg Oral Daily 30 Tab Carisoprodol (Soma) 350 Mg Tablet 350 Mg Oral Every 6 Hours as needed for S Clonidine Hcl 0.2 Mg Tablet 1 Tab Oral Every 4 Hours for Sbp>140 Lisinopril 10 Mg Tablet 20 Mg Oral Twice A Day 30 Tab Meloxicam 7.5 Mg Tablet 15 Mg Oral Daily 30 Tab Metoprolol Tartrate 50 Mg Tablet 100 Mg Oral Every Morning Metoprolol Tartrate 50 Mg Tablet 50 Mg Oral Bedtime Rivaroxaban (Xarelto) 10 Mg Tablet 2 Tab Oral Twice Daily With Meals Social History Social History Problem Response Recorded Date/Time Onset Date Status Hx Psychiatric Problems No 08/01/2017 4:39am Not Applicable Not Applicable Hx Eating Disorder No 08/01/2017 4:39am Not Applicable Not Applicable Hx Substance Use Disorder No 08/01/2017 4:39am Not Applicable Not Applicable Hx Depression No 08/01/2017 4:39am Not Applicable Not Applicable Hx Alcohol Use No 08/01/2017 4:39am Not Applicable Not Applicable Hx Substance Use Treatment No 08/01/2017 4:39am Not Applicable Not Applicable Hx Physical Abuse No 08/01/2017 4:39am Not Applicable Not Applicable Hospital Discharge Instructions No hospital discharge instruction information available. Plan of Care Prescriptions See Medication Section Functional Status No functional status information available. Allergies, Adverse Reactions, Alerts No known allergies. Immunizations No immunization information available. Vital Signs Acute Vital Signs Vital Response Date/Time Temperature (Fahrenheit) 99.2 degrees F (97.6 - 99.5) 08/07/2017 12:06pm Pulse Pulse Rate (adult) 75 bpm (60 - 90) 08/07/2017 12:06pm Respiratory Rate 20 bpm (12 - 24) 08/07/2017 12:06pm Blood Pressure 141/85 mm Hg 08/07/2017 12:06pm Results Laboratory Results Test Name Result Units Flags Reference Collection Date/Time Result Date/ Time Comments White Blood Count 7.78 x10e3/uL 4.8-10.8 08/06/2017 6:37am 08/06/2017 7 :23am Red Blood Count 4.47 x10e6/uL 4.3-5.7 08/06/2017 6:37am 08/06/2017 7: 23am Hemoglobin 13.6 g/dL L 14.0-18.0 08/06/2017 6:37am 08/06/2017 7:23am Hematocrit 40.8 % 38.2-49.6 08/06/2017 6:37am 08/06/2017 7:23am Mean Corpuscular Volume 91.3 fL 81-99 08/06/2017 6:37am 08/06/2017 7: 23am Mean Corpuscular Hemoglobin 30.4 pg 28-32 08/06/2017 6:37am 08/06/2017 7:23am Mean Corpuscular Hemoglobin Concent 33.3 g/dL 31-35 08/06/2017 6:37am 08/06/2017 7:23am Red Cell Distribution Width 12.7 % 11.7-14.4 08/06/2017 6:37am 2017 7:23am Platelet Count 257 x10e3/uL 140-360 08/06/2017 6:37am 08/06/2017 7: 23am Neutrophils (%) (Auto) 63.0 % 38.7-80.0 08/06/2017 6:37am 08/06/2017 7: 23am Lymphocytes (%) (Auto) 14.8 % L 18.0-39.1 08/06/2017 6:37am 08/06/2017 7 :23am Monocytes (%) (Auto) 17.6 % H 4.4-11.3 08/06/2017 6:37am 08/06/2017 7: 23am Eosinophils (%) (Auto) 3.2 % 0.0-6.0 08/06/2017 6:37am 08/06/2017 7: 23am Basophils (%) (Auto) 0.9 % 0.0-1.0 08/06/2017 6:37am 08/06/2017 7:23am IM GRANULOCYTES % 0.5 % 0.0-1.0 08/06/2017 6:37am 08/06/2017 7:23am Neutrophils # (Auto) 4.9 2.1-6.9 08/06/2017 6:37am 08/06/2017 7:23am Lymphocytes # (Auto) 1.2 1.0-3.2 08/06/2017 6:37am 08/06/2017 7:23am Monocytes # (Auto) 1.4 H 0.2-0.8 08/06/2017 6:37am 08/06/2017 7:23am Eosinophils # (Auto) 0.3 0.0-0.4 08/06/2017 6:37am 08/06/2017 7:23am Basophils # (Auto) 0.1 0.0-0.1 08/06/2017 6:37am 08/06/2017 7:23am Absolute Immature Granulocyte (auto 0.04 x10e3/uL 0-0.1 08/06/2017 6: 37am 08/06/2017 7:23am Differential Total Cells Counted 100 08/03/2017 5:00am 08/03/2017 1 :29pm Neutrophils % (Manual) 65 % 40-74 08/03/2017 5:00am 08/03/2017 1:29pm Band Neutrophils % 1 % 08/03/2017 5:00am 08/03/2017 1:29pm Lymphocytes % (Manual) 12 % L 19-48 08/03/2017 5:00am 08/03/2017 1:29pm Monocytes % (Manual) 18 % H 3.4-9.0 08/03/2017 5:00am 08/03/2017 1:29pm Eosinophils % (Manual) 4 % 0-7 08/03/2017 5:00am 08/03/2017 1:29pm Platelet Estimate ADEQUATE 08/03/2017 5:00am 08/03/2017 1:29pm Platelet Morphology Comment NORMAL 08/03/2017 5:00am 08/03/2017 1: 29pm Anisocytosis SLIGHT 08/03/2017 5:00am 08/03/2017 1:29pm Red Cell Morphology Comment NORMAL 08/03/2017 5:00am 08/03/2017 1: 29pm Erythrocyte Sedimentation Rate 26 mm/hr H 0-13 08/01/2017 6:37am 2017 8:58pm Urine Color YELLOW YELLOW 07/31/2017 7:50am 08/01/2017 8:50am Urine Clarity CLEAR CLEAR 07/31/2017 7:50am 08/01/2017 8:50am Urine Specific [place] 1.015 1.010-1.025 07/31/2017 7:50am 2017 8:50am Urine pH 7 5 - 7 07/31/2017 7:50am 08/01/2017 8:50am Urine Leukocyte Esterase NEGATIVE NEGATIVE 07/31/2017 7:50am 2017 8:50am Urine Nitrite NEGATIVE NEGATIVE 07/31/2017 7:50am 08/01/2017 8:50am Urine Protein NEGATIVE NEGATIVE 07/31/2017 7:50am 08/01/2017 8:50am Urine Glucose (UA) NEGATIVE NEGATIVE 07/31/2017 7:50am 08/01/2017 8: 50am Urine Ketones NEGATIVE NEGATIVE 07/31/2017 7:50am 08/01/2017 8:50am Urine Urobilinogen 0.2 mg/dL 0.2 - 1 07/31/2017 7:50am 08/01/2017 8: 50am Urine Bilirubin NEGATIVE NEGATIVE 07/31/2017 7:50am 08/01/2017 8: 50am Urine Blood NEGATIVE NEGATIVE 07/31/2017 7:50am 08/01/2017 8:50am Urine WBC 0-5 /HPF 0-5 07/31/2017 7:50am 08/01/2017 8:51am Urine RBC NONE /HPF 0-5 07/31/2017 7:50am 08/01/2017 8:51am Urine Bacteria NONE /HPF NONE 07/31/2017 7:50am 08/01/2017 8:51am Urine Epithelial Cells RARE /LPF NONE 07/31/2017 7:50am 08/01/2017 8: 51am Sodium Level 136 mmol/L 136-145 08/06/2017 6:37am 08/06/2017 7:48am Potassium Level 3.8 mmol/L 3.5-5.1 08/06/2017 6:37am 08/06/2017 7:48am Chloride Level 103 mmol/L 98-107 08/06/2017 6:37am 08/06/2017 7:48am Carbon Dioxide Level 21 mmol/L L 22-08/06/2017 6:3708/06/2017 7: 48am Anion Gap 15.8 mmol/L 8-16 08/06/2017 6:3708/06/2017 7:48am Blood Urea Nitrogen 15 mg/dL 7-26 08/06/2017 6:3708/06/2017 7:48am Creatinine 1.36 mg/dL H 0.72-1.25 08/06/2017 6:3708/06/2017 7:48am BUN/Creatinine Ratio 11 6-25 08/06/2017 6:3708/06/2017 7:48am Estimat Glomerular Filtration Rate 54 ML/MIN L 60- 08/06/2017 6:37 7:48am Ranges were taken from the National Kidney Disease Education Program and the National Kidney Foundation literature. Reference ranges: 60 or greater: Normal 16-59 (for 3 consecutive months): Chronic kidney disease 15 or less: Kidney failure Glucose Level 101 mg/dL 74-118 08/06/2017 6:3708/06/2017 7:48am Calcium Level 9.0 mg/dL 8.4-10.2 08/06/2017 6:3708/06/2017 7:48am Lactic Acid Level 7.8 MG/DL 4.5-19.8 07/31/2017 2:15pm 07/31/2017 2: 42pm Total Bilirubin 0.3 mg/dL 0.2-1.2 08/01/2017 6:1508/01/2017 7:21am Aspartate Amino Transf (AST/SGOT) 101 IU/L H 5-34 08/01/2017 6:15 7:21am Alanine Aminotransferase (ALT/SGPT) 112 IU/L H 0-55 08/01/2017 6:15 7:21am Total Protein 6.5 g/dL 6.5-8.1 08/01/2017 6:1508/01/2017 7:21am Albumin 3.0 g/dL L 3.5-5.0 08/01/2017 6:1508/01/2017 7:21am Globulin 3.5 g/dL 2.3-3.5 08/01/2017 6:1508/01/2017 7:21am Albumin/Globulin Ratio 0.9 0.8-2.0 08/01/2017 6:15am 08/01/2017 7: 21am Alkaline Phosphatase 62 IU/L 40-150 08/01/2017 6:15am 08/01/2017 7: 21am Vancomycin Level Trough 18.6 ug/mL *H 5.0-10.0 08/06/2017 12:10am 2017 12:45am Results called to PAVAN NIÑORN at 0044 on 08/06/17 by Danay Raymundo. RB OK. C-Reactive Protein 36.3 mg/L H 0.0-4.9 08/02/2017 4:35pm 08/04/2017 11: 12pm Performed at: [address] [id number] Pastry Cook Helper: Aamir Briggs MD, Phone: [phone] Microbiology Results Procedure Source Organism/Result Collection Date/Time Result Date/Time Result Status Wound Culture Abdominal Fluid ENTEROBACTER CLOACAE 08/01/2017 4:54pm 08/05 8:43am Final STAPHYLOCOCCUS AUREUS-MRSA 08/01/2017 4:54pm 08/05/2017 8:43am Final STAPHYLOCOCCUS SP COAG NEG 08/01/2017 4:54pm 08/05/2017 8:43am Final STENOTROPHOMONAS MALTOPHILIA 08/01/2017 4:54pm 08/05/2017 8:43am Final Blood Culture Blood NO GROWTH AFTER 5 DAYS, FINAL REPORT 08/04/2017 2:15pm 08/09/2017 2:20pm Final Procedures Procedure Status Date Provider(s) MRI joint extremity lower wo then w contrast Active 08/02/17 ALYCIA ROBERTS MD Encounters Encounter Location Arrival/Admit Date Discharge/Depart Date Attending Provider Discharged [facility]ring [facility] 09/05/17 9:48am 09/05/17 11:59pm OSCAR SOSA MD Discharged Inpatient [facility] Patients [facility] 08/01/17 9:20pm 08/07/17 3:42pm ALYCIA ROBERTS MD
[2017-09-06] MEDS ORDERED: SODIUM CHLORIDE 0.9% 1000ML 1,000 ML IV STA (12:26)
[2017-09-06] MEDS ORDERED: VANCOMYCIN 1GM/NS 250 ML 250 ML IV ONE (12:30)
[2017-09-06] MEDS ORDERED: CEFEPIME HCL 1 GM VIAL IV SCH (12:45)
--- NOTE | 2017-09-06 13:27 | Diagnostic Imaging Report ---
PROCEDURE:LOWER LEG LEFT TECHNIQUE:AP and lateral the tibia INDICATION:Infection COMPARISON:None. FINDINGS: Below-knee amputation. Ulceration and anterior tibial subcutaneous emphysema adjacent to the anterior margin of the remaining proximal tibia. No focal periosteal reaction or erosion. Remaining regional skeleton is intact. CONCLUSION: 1. Subcutaneous emphysema consistent with cellulitis. 2. No evidence of acute osteomyelitis. Dictated by: Tim Valdivia M.D. on 09/06/2017 at 13:28 Electronically approved by: Tim Valdivia M.D. on 09/06/2017 at 13:28
[2017-09-06] MEDS ORDERED: SODIUM CHLORIDE 0.9% 1000ML 1,000 ML ONE ×2 (15:34→18:38)
[2017-09-06 16:02] LABS: BASOPHILS # (AUTO) 0.1 (0.0-0.1); BASOPHILS % 0.7 % (0.0-1.0); EOSINOPHILS # (AUTO) 0.3 (0.0-0.4); EOSINOPHILS % 2.1 % (0.0-6.0); HEMOGLOBIN 12.2 g/dL (14.0-18.0); LYMPHOCYTES # (AUTO) 2.4 (1.0-3.2); LYMPHOCYTES % 18.6 % (18.0-39.1); MEAN CORPUSCULAR HEMOGLOBIN 30.3 pg (28-32); MONOCYTES % 15.9 % (4.4-11.3); NEUTROPHILS # (AUTO) 7.8 (2.1-6.9); NEUTROPHILS % 61.4 % (38.7-80.0); PLATELET COUNT 281 x10e3/uL (140-360); RED BLOOD COUNT 4.02 x10e6/uL (4.3-5.7); RED CELL DISTRIBUTION WIDTH 13.2 % (11.7-14.4)
[2017-09-06 16:24] LABS: ALBUMIN 3.6 g/dL (3.5-5.0); ALBUMIN/GLOBULIN RATIO 0.9 (0.8-2.0); ANION GAP 14.5 mmol/L (8-16); CALCIUM 9.4 mg/dL (8.4-10.2); CREATININE, SERUM 1.37 mg/dL (0.72-1.25); POTASSIUM 4.5 mmol/L (3.5-5.1)
[2017-09-06] MEDS ORDERED: SODIUM CHLORIDE FLUSH 10 ML SYR INJ PRN (18:00)
[2017-09-06 18:20] LABS: EOSINOPHILS % (MANUAL) 1 % (0-7); LYMPHOCYTES % (MANUAL) 21 % (19-48); MONOCYTES % (MANUAL) 18 % (3.4-9.0); NEUTROPHILS % (MANUAL) 60 % (40-74); PLATELET ESTIMATE ADEQUATE; RBC MORPHOLOGY COMMENT NORMAL
[2017-09-06] MEDS: MORPHINE SULFATE 2 MG/ML SYR IV PRN (18:40)
[2017-09-06] MEDS: ONDANSETRON HCL INJ 2 MG/ML VIAL IV PRN (18:40)
[2017-09-06] MEDS ORDERED: VANCOMYCIN 1GM/NS 250 ML 250 ML ONE (19:11)
[2017-09-06] MEDS ORDERED: NORCO 10-325 T1 EACH PO (20:06)
[2017-09-06 22:00] VITALS: BP 128/92
[2017-09-06] MEDS: DOCUSATE SODIUM 100 MG CAP PO SCH (23:03)
[2017-09-06] MEDS: CARISOPRODOL 350 MG TAB PO PRN (23:03)
[2017-09-06] MEDS: HYDROCODONE/APAP 10MG-325MG TAB PO PRN (23:03)
[2017-09-06] MEDS: PIPER-TAZ 3.375 GM 50 ML IV SCH (23:20)
[2017-09-07 01:11] VITALS: BP 149/99
[2017-09-07] MEDS: MORPHINE SULFATE 2 MG/ML SYR IV PRN (02:28)
[2017-09-07] MEDS: HYDROCODONE/APAP 10MG-325MG TAB PO PRN ×3 (05:46→19:45)
[2017-09-07 05:53] VITALS: BP 135/72
[2017-09-07] MEDS: PIPER-TAZ 3.375 GM 50 ML IV SCH ×3 (05:56→20:57)
[2017-09-07 06:22] LABS: BASOPHILS # (AUTO) 0.1 (0.0-0.1); BASOPHILS % 0.5 % (0.0-1.0); EOSINOPHILS # (AUTO) 0.3 (0.0-0.4); EOSINOPHILS % 1.9 % (0.0-6.0); HEMATOCRIT 32.7 % (38.2-49.6); HEMOGLOBIN 10.7 g/dL (14.0-18.0); LYMPHOCYTES # (AUTO) 0.7 (1.0-3.2); LYMPHOCYTES % 4.9 % (18.0-39.1); MEAN CORPUSCULAR HEMOGLOBIN 30.3 pg (28-32); MEAN CORPUSCULAR HGB CONC 32.7 g/dL (31-35); MEAN CORPUSCULAR VOLUME 92.6 fL (81-99); MONOCYTES # (AUTO) 1.5 (0.2-0.8); MONOCYTES % 10.9 % (4.4-11.3); NEUTROPHILS # (AUTO) 11.2 (2.1-6.9); NEUTROPHILS % 81.2 % (38.7-80.0); PLATELET COUNT 228 x10e3/uL (140-360); RED BLOOD COUNT 3.53 x10e6/uL (4.3-5.7); RED CELL DISTRIBUTION WIDTH 13.2 % (11.7-14.4)
[2017-09-07 08:00] VITALS: BP 161/90
[2017-09-07] MEDS ORDERED: RIVAROXABAN 10 MG TABLET PO SCH (08:00)
[2017-09-07] MEDS: DOCUSATE SODIUM 100 MG CAP PO SCH ×2 (08:12→17:22)
[2017-09-07] MEDS: METOPROLOL TARTRATE 50 MG TAB PO SCH ×2 (08:12→20:55)
[2017-09-07] MEDS: AMLODIPINE BESYLATE 5 MG TAB PO SCH (08:12)
[2017-09-07] MEDS: CARISOPRODOL 350 MG TAB PO PRN ×2 (08:12→18:11)
[2017-09-07] MEDS: MELOXICAM 7.5 MG TAB PO SCH (08:12)
[2017-09-07] MEDS ORDERED: LISINOPRIL 10 MG TAB PO SCH (09:00)
[2017-09-07] MEDS: HYDROMORPHONE 1MG/1ML INJ IV PRN ×3 (11:15→22:46)
[2017-09-07] MEDS ORDERED: SODIUM CHLORIDE 0.9% 250ML 250 ML ONE (11:37)
[2017-09-07] MEDS: VANCOMYCIN 1GM/NS 250 ML 250 ML IV SCH (11:39)
--- NOTE | 2017-09-07 11:47 | History and Physical ---
PRIMARY CARE PROVIDER: Dr. Efe Dumont. CHIEF COMPLAINT: Infected left stump ulcer with infection, persistent since May of last year. HISTORY: This 53-year-old male with a stump infection and ulceration much worse. The patient failed extensive treatment, wound VAC, IV antibiotic and so forth as an outpatient. The left stump ulcer is much larger now with surrounding erythema. It is infected. It is a deep ulcer. The patient will most likely need surgical intervention. The patient is admitted for IV antibiotic and surgical intervention. PAST MEDICAL HISTORY: Hypertension and right stump persistent infection with failed treatment. SOCIAL HISTORY: Patient does not smoke or use alcohol. No recreational drugs. ALLERGIES: NO KNOWN ALLERGIES. HOME MEDICATIONS: List is reviewed. REVIEW OF SYSTEMS: As mentioned above. PHYSICAL EXAMINATION VITAL SIGNS: Temperature is 98. Blood pressure 135/72. Pulse rate 85. Respirations 18. GENERAL: The patient is in no acute distress. He is awake. HEENT: Normocephalic, atraumatic, anicteric. NECK: Supple grossly. PULMONARY: Diminished breath sounds. CARDIOVASCULAR: Regular rate and rhythm. ABDOMEN: Soft. EXTREMITIES: Right stump with large ulcer at base with pus and surrounding erythema. It is in the anterior surface below the knee area. NEUROLOGIC: No focal deficit. LABORATORY: Reviewed. WBC is 13.8. BUN and creatinine are 29 and 1.3 respectively. IMPRESSION: Right stump infected ulcer, deep wound with surrounding erythema and gas noticed on the x-ray. PLAN: Surgical intervention and IV antibiotics. We will continue to monitor the patient closely. Job#: [id number]
[2017-09-07 12:00] VITALS: BP 111/80
[2017-09-07 16:00] VITALS: BP 159/106
[2017-09-07] MEDS: LISINOPRIL 20 MG TAB PO SCH (17:23)
[2017-09-07 20:00] VITALS: BP 161/115
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
[2017-09-07] MEDS: ONDANSETRON HCL INJ 2 MG/ML VIAL IV PRN (22:46)
[2017-09-08] VITALS: BP 135/94
[2017-09-08] MEDS: HYDROCODONE/APAP 10MG-325MG TAB PO PRN ×3 (02:15→20:54)
[2017-09-08] MEDS: CARISOPRODOL 350 MG TAB PO PRN ×3 (02:15→16:44)
[2017-09-08 04:00] VITALS: BP 145/85
[2017-09-08] MEDS: PIPER-TAZ 3.375 GM 50 ML IV SCH ×3 (05:18→20:54)
[2017-09-08 06:37] LABS: BASOPHILS # (AUTO) 0.1 (0.0-0.1); BASOPHILS % 0.7 % (0.0-1.0); EOSINOPHILS # (AUTO) 0.6 (0.0-0.4); HEMATOCRIT 32.2 % (38.2-49.6); HEMOGLOBIN 10.8 g/dL (14.0-18.0); LYMPHOCYTES # (AUTO) 0.9 (1.0-3.2); LYMPHOCYTES % 9.4 % (18.0-39.1); MEAN CORPUSCULAR HEMOGLOBIN 30.5 pg (28-32); MEAN CORPUSCULAR HGB CONC 33.5 g/dL (31-35); MONOCYTES # (AUTO) 1.4 (0.2-0.8); MONOCYTES % 14.6 % (4.4-11.3); NEUTROPHILS # (AUTO) 6.6 (2.1-6.9); NEUTROPHILS % 68.7 % (38.7-80.0); PLATELET COUNT 217 x10e3/uL (140-360); RED BLOOD COUNT 3.54 x10e6/uL (4.3-5.7)
[2017-09-08 07:00] LABS: ANION GAP 14.7 mmol/L (8-16); CALCIUM 9.3 mg/dL (8.4-10.2); CREATININE, SERUM 1.23 mg/dL (0.72-1.25); POTASSIUM 4.7 mmol/L (3.5-5.1)
[2017-09-08 07:24] LABS: THYROID STIMULATING HORMONE 1.332 uIU/mL (0.350-4.940)
[2017-09-08] MEDS: HYDROMORPHONE 1MG/1ML INJ IV PRN ×2 (07:45→16:44)
[2017-09-08 08:00] VITALS: BP 133/65
[2017-09-08] MEDS: LISINOPRIL 20 MG TAB PO SCH ×2 (08:45→17:07)
[2017-09-08] MEDS: DOCUSATE SODIUM 100 MG CAP PO SCH ×2 (08:45→17:07)
[2017-09-08] MEDS: METOPROLOL TARTRATE 50 MG TAB PO SCH ×2 (08:45→20:54)
[2017-09-08] MEDS: MELOXICAM 7.5 MG TAB PO SCH (08:45)
[2017-09-08] MEDS: AMLODIPINE BESYLATE 5 MG TAB PO SCH (08:45)
[2017-09-08 12:00] VITALS: BP 138/77
[2017-09-08] MEDS: VANCOMYCIN 1GM/NS 250 ML 250 ML IV SCH (12:15)
[2017-09-08 16:00] VITALS: BP 124/79
[2017-09-08 20:00] VITALS: BP 126/82
[2017-09-09] VITALS (7 sets, daily range): BP systolic 120–165; BP diastolic 72–112
[2017-09-09] MEDS: HYDROMORPHONE 1MG/1ML INJ IV PRN ×4 (00:29→18:27)
[2017-09-09] MEDS: CARISOPRODOL 350 MG TAB PO PRN ×3 (00:32→20:17)
[2017-09-09] MEDS: HYDROCODONE/APAP 10MG-325MG TAB PO PRN ×3 (03:09→20:17)
[2017-09-09] MEDS: PIPER-TAZ 3.375 GM 50 ML IV SCH ×3 (05:33→20:32)
[2017-09-09] MEDS: DOCUSATE SODIUM 100 MG CAP PO SCH ×2 (09:07→17:07)
[2017-09-09] MEDS: LISINOPRIL 20 MG TAB PO SCH ×2 (09:08→17:07)
[2017-09-09] MEDS: MELOXICAM 7.5 MG TAB PO SCH (09:08)
[2017-09-09] MEDS: METOPROLOL TARTRATE 50 MG TAB PO SCH ×2 (09:08→20:17)
[2017-09-09] MEDS: AMLODIPINE BESYLATE 5 MG TAB PO SCH (09:08)
[2017-09-09] MEDS: VANCOMYCIN 1GM/NS 250 ML 250 ML IV SCH (13:53)
[2017-09-10] VITALS (10 sets, daily range): BP systolic 128–160; BP diastolic 81–106
[2017-09-10] MEDS: HYDROMORPHONE 1MG/1ML INJ IV PRN ×4 (01:15→13:00)
[2017-09-10] MEDS: PIPER-TAZ 3.375 GM 50 ML IV SCH ×3 (05:16→21:44)
[2017-09-10] MEDS: LISINOPRIL 20 MG TAB PO SCH ×2 (07:46→18:00)
[2017-09-10] MEDS: AMLODIPINE BESYLATE 5 MG TAB PO SCH (07:47)
[2017-09-10] MEDS: DOCUSATE SODIUM 100 MG CAP PO SCH ×2 (08:58→17:00)
[2017-09-10] MEDS: MELOXICAM 7.5 MG TAB PO SCH (09:00)
[2017-09-10] MEDS: METOPROLOL TARTRATE 50 MG TAB PO SCH ×3 (09:00→21:00)
[2017-09-10] MEDS: VANCOMYCIN 1GM/NS 250 ML 250 ML IV SCH (12:00)
[2017-09-10] MEDS ORDERED: PROPOFOL IV EMULSION 10 MG/ML 20 ML VIAL ONE (14:44)
[2017-09-10] MEDS ORDERED: SEVOFLURANE INHAL SOLN 250 ML PEN BTL ONE (14:44)
[2017-09-10] MEDS ORDERED: DEXAMETHASONE SOD PHOS INJ 4 MG/ML VIAL ONE (14:44)
[2017-09-10] MEDS ORDERED: LIDOCAINE HCL 2% LOCAL INJ 5 ML SDV VIAL INJ ONE (14:44)
[2017-09-10] MEDS ORDERED: ONDANSETRON HCL INJ 2 MG/ML VIAL ONE (14:44)
[2017-09-10] MEDS ORDERED: ESMOLOL HCL 100MG/10ML 10 MG/ML VIAL ONE (14:44)
[2017-09-10] MEDS ORDERED: MIDAZOLAM HCL 2 MG/2 ML VIAL ONE (16:06)
[2017-09-10] MEDS ORDERED: MORPHINE SULFATE INJ 10 MG/ML ONE (16:06)
[2017-09-10] MEDS ORDERED: FENTANYL CITRATE/PF 100MCG/2 ML INJ ONE (16:06)
[2017-09-10] MEDS ORDERED: KETOROLAC TROMETHAMINE 30 MG/ML VIAL IV PRN (16:30)
[2017-09-10] MEDS ORDERED: SODIUM CHLORIDE 0.9% 1000ML 1,000 ML IV SCH (16:30)
[2017-09-10] MEDS ORDERED: NALOXONE HCL INJ 0.4 MG/ML AMP IV PRN (16:30)
[2017-09-10] MEDS ORDERED: ACETAMINOPHEN 1000 MG/100 ML IV PRN (16:30)
[2017-09-10] MEDS ORDERED: ONDANSETRON HCL INJ 2 MG/ML VIAL IV PRN (16:30)
[2017-09-10] MEDS ORDERED: DIPHENHYDRAMINE HCL 25 MG CAP PO PRN (16:30)
[2017-09-10] MEDS ORDERED: HYDROMORPHONE 1MG/1ML INJ ONE ×3 (16:41→16:46)
--- NOTE | 2017-09-10 16:56 | Operative Report ---
DATE OF PROCEDURE: September 10, 2017 PREOPERATIVE DIAGNOSIS: Nonhealing deep ulcer, left below-knee amputation stump. POSTOPERATIVE DIAGNOSIS: Nonhealing deep ulcer, left below-knee amputation stump. PROCEDURE PERFORMED: Left above-knee amputation. CORK SLABS SAWYER: None. ANESTHESIA: General. INDICATIONS AND FINDINGS: The patient is a 57-year-old male who has had a below-knee amputation for a long time and developed an infection and then a large ulcer on the below-knee amputation stump that extended down to bone such that the leg below the knee could not be salvaged. At surgery, the tissues all appeared viable at the level of the amputation. TECHNIQUE: After adequate general anesthesia, with the patient in the supine position, the left leg was prepped and draped in a sterile fashion with Dariusz solution. A fishmouth incision was made starting just above the patella and carried up on to the thigh. Anteriorly, the incision was carried down through the anterior muscles and tendons down to the femur. The medial and lateral muscles were divided. The femur was stripped of its periosteum. It was then divided as proximally as possible with the Gigli saw. The popliteal artery was dissected free and divided between clamps as were the nerves and veins. These were all divided between clamps. Some intramuscular arteries were also divided between clamps. Posterior muscles were divided. There was some edema posteriorly. The left below-knee amputation stump was removed. Each vessel was suture ligated with 2-0 silk, and hemostasis was seen to be adequate. The wound was irrigated with saline. The wound was then closed with 2-0 Vicryl to the subcutaneous fascia and soheila for the skin. Sterile dressing was applied. Patient tolerated the procedure well. Estimated blood loss was 50 mL. There were no complications. All counts were correct. Patient was taken to the recovery room in satisfactory condition. Job#: [id number] cc:MD JULIA MILLER MD
[2017-09-10] MEDS ORDERED: HYDROMORPHONE 0.2MG/ML-SOD CHL 30ML PCA SYRINGE IV ONE (17:17)
[2017-09-10] MEDS ORDERED: LABETALOL HCL 20 ML ONE (17:29)
[2017-09-11] VITALS (7 sets, daily range): BP systolic 132–150; BP diastolic 91–112
[2017-09-11] MEDS: HYDROMORPHONE 0.2MG/ML-SOD CHL 30ML PCA SYRINGE IV PRN ×3 (00:52→15:30)
[2017-09-11] MEDS: PIPER-TAZ 3.375 GM 50 ML IV SCH ×2 (05:37→14:00)
[2017-09-11 06:55] LABS: BASOPHILS % 0.2 % (0.0-1.0); EOSINOPHILS % 0.2 % (0.0-6.0); HEMATOCRIT 30.4 % (38.2-49.6); HEMOGLOBIN 10.2 g/dL (14.0-18.0); LYMPHOCYTES # (AUTO) 1.1 (1.0-3.2); LYMPHOCYTES % 7.4 % (18.0-39.1); MEAN CORPUSCULAR HEMOGLOBIN 30.9 pg (28-32); MEAN CORPUSCULAR HGB CONC 33.6 g/dL (31-35); MEAN CORPUSCULAR VOLUME 92.1 fL (81-99); MONOCYTES # (AUTO) 2.2 (0.2-0.8); MONOCYTES % 15.1 % (4.4-11.3); NEUTROPHILS # (AUTO) 11.2 (2.1-6.9); NEUTROPHILS % 76.6 % (38.7-80.0); PLATELET COUNT 253 x10e3/uL (140-360)
[2017-09-11] MEDS: MELOXICAM 7.5 MG TAB PO SCH (09:00)
[2017-09-11] MEDS: AMLODIPINE BESYLATE 5 MG TAB PO SCH (09:00)
[2017-09-11] MEDS: LISINOPRIL 20 MG TAB PO SCH ×2 (09:00→17:00)
[2017-09-11] MEDS: METOPROLOL TARTRATE 50 MG TAB PO SCH ×2 (09:00→20:33)
[2017-09-11] MEDS: DOCUSATE SODIUM 100 MG CAP PO SCH ×2 (09:00→17:00)
[2017-09-11 11:37] LABS: LYMPHOCYTES % (MANUAL) 8 % (19-48); MONOCYTES % (MANUAL) 12 % (3.4-9.0); NEUTROPHILS % (MANUAL) 80 % (40-74)
[2017-09-11 11:38] LABS: ANISOCYTOSIS SLIGHT; HYPOCHROMASIA SLIGHT; PLATELET ESTIMATE ADEQUATE; PLATELET MORPHOLOGY COMMENT FEW LARGE; RBC MORPHOLOGY COMMENT NORMAL
[2017-09-11] MEDS: VANCOMYCIN 1GM/NS 250 ML 250 ML IV SCH (12:00)
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
[2017-09-11] MEDS: CELECOXIB 200 MG CAP PO SCH (18:15)
[2017-09-11] MEDS: CEFEPIME HCL 1 GM VIAL IV SCH (18:30)
[2017-09-11] MEDS: HYDROCODONE/APAP 10MG-325MG TAB PO PRN (20:33)
[2017-09-11] MEDS: HYDROMORPHONE 1MG/1ML INJ IV PRN (23:41)
[2017-09-12] MEDS: CARISOPRODOL 350 MG TAB PO PRN ×3 (00:56→23:26)
[2017-09-12 02:06] VITALS: BP 153/90
[2017-09-12] MEDS: HYDROCODONE/APAP 10MG-325MG TAB PO PRN ×2 (02:30→16:40)
[2017-09-12 05:04] VITALS: BP 129/93
[2017-09-12] MEDS: HYDROMORPHONE 1MG/1ML INJ IV PRN ×4 (05:47→23:30)
[2017-09-12] MEDS: CEFEPIME HCL 1 GM VIAL IV SCH ×2 (05:47→17:14)
[2017-09-12 07:01] LABS: BASOPHILS # (AUTO) 0.1 (0.0-0.1); BASOPHILS % 0.4 % (0.0-1.0); EOSINOPHILS # (AUTO) 0.7 (0.0-0.4); EOSINOPHILS % 4.8 % (0.0-6.0); HEMATOCRIT 30.3 % (38.2-49.6); HEMOGLOBIN 10.1 g/dL (14.0-18.0); LYMPHOCYTES # (AUTO) 0.8 (1.0-3.2); LYMPHOCYTES % 5.9 % (18.0-39.1); MEAN CORPUSCULAR HEMOGLOBIN 30.2 pg (28-32); MEAN CORPUSCULAR HGB CONC 33.3 g/dL (31-35); MEAN CORPUSCULAR VOLUME 90.7 fL (81-99); MONOCYTES % 7.2 % (4.4-11.3); NEUTROPHILS # (AUTO) 11.2 (2.1-6.9); NEUTROPHILS % 81.1 % (38.7-80.0); PLATELET COUNT 239 x10e3/uL (140-360); RED BLOOD COUNT 3.34 x10e6/uL (4.3-5.7); RED CELL DISTRIBUTION WIDTH 13.1 % (11.7-14.4)
[2017-09-12 07:29] LABS: ANION GAP 13.2 mmol/L (8-16); BLOOD UREA NITROGEN 18 mg/dL (7-26); BUN/CREATININE RATIO 16 (6-25); CALCIUM 8.9 mg/dL (8.4-10.2); CARBON DIOXIDE 20 mmol/L (22-29); CHLORIDE 104 mmol/L (98-107); CREATININE, SERUM 1.11 mg/dL (0.72-1.25); EST GLOMERULAR FILTRATION RATE > 60 ML/MIN (60-); GLUCOSE 125 mg/dL (74-118); POTASSIUM 4.2 mmol/L (3.5-5.1); SODIUM 133 mmol/L (136-145)
[2017-09-12] MEDS: METOPROLOL TARTRATE 50 MG TAB PO SCH ×2 (07:30→20:30)
[2017-09-12 08:00] VITALS: BP 117/75
[2017-09-12] MEDS: LISINOPRIL 20 MG TAB PO SCH ×2 (09:00→16:40)
[2017-09-12] MEDS: AMLODIPINE BESYLATE 5 MG TAB PO SCH (09:00)
[2017-09-12] MEDS: DOCUSATE SODIUM 100 MG CAP PO SCH ×2 (09:00→16:40)
[2017-09-12] MEDS: CELECOXIB 200 MG CAP PO SCH ×2 (09:00→16:40)
[2017-09-12 12:00] VITALS: BP 118/83
[2017-09-12] MEDS: VANCOMYCIN 1GM/NS 250 ML 250 ML IV SCH (12:45)
[2017-09-12 16:00] VITALS: BP 128/79
[2017-09-12] MEDS: RIVAROXABAN 20 MG TABLET PO SCH (16:40)
[2017-09-12 20:00] VITALS: BP 132/107
[2017-09-13] VITALS: BP 137/101
[2017-09-13 04:00] VITALS: BP 147/111
[2017-09-13] MEDS: HYDROCODONE/APAP 10MG-325MG TAB PO PRN ×3 (05:46→22:30)
[2017-09-13] MEDS: CEFEPIME HCL 1 GM VIAL IV SCH ×2 (05:46→18:22)
[2017-09-13 07:04] LABS: BASOPHILS % 0.3 % (0.0-1.0); EOSINOPHILS # (AUTO) 0.9 (0.0-0.4); EOSINOPHILS % 8.6 % (0.0-6.0); HEMATOCRIT 30.9 % (38.2-49.6); HEMOGLOBIN 10.4 g/dL (14.0-18.0); LYMPHOCYTES # (AUTO) 1.1 (1.0-3.2); LYMPHOCYTES % 10.6 % (18.0-39.1); MEAN CORPUSCULAR HEMOGLOBIN 30.7 pg (28-32); MEAN CORPUSCULAR HGB CONC 33.7 g/dL (31-35); MEAN CORPUSCULAR VOLUME 91.2 fL (81-99); MONOCYTES # (AUTO) 1.3 (0.2-0.8); MONOCYTES % 12.3 % (4.4-11.3); NEUTROPHILS # (AUTO) 6.8 (2.1-6.9); NEUTROPHILS % 67.1 % (38.7-80.0); PLATELET COUNT 239 x10e3/uL (140-360); RED BLOOD COUNT 3.39 x10e6/uL (4.3-5.7); RED CELL DISTRIBUTION WIDTH 13.1 % (11.7-14.4)
[2017-09-13 07:21] LABS: ANION GAP 12.4 mmol/L (8-16); BLOOD UREA NITROGEN 19 mg/dL (7-26); BUN/CREATININE RATIO 17 (6-25); CARBON DIOXIDE 22 mmol/L (22-29); CHLORIDE 105 mmol/L (98-107); CREATININE, SERUM 1.12 mg/dL (0.72-1.25); EST GLOMERULAR FILTRATION RATE > 60 ML/MIN (60-); GLUCOSE 115 mg/dL (74-118); POTASSIUM 4.4 mmol/L (3.5-5.1); SODIUM 135 mmol/L (136-145)
[2017-09-13 08:00] VITALS: BP 140/112
[2017-09-13] MEDS: DOCUSATE SODIUM 100 MG CAP PO SCH ×2 (08:08→16:22)
[2017-09-13] MEDS: AMLODIPINE BESYLATE 5 MG TAB PO SCH (08:08)
[2017-09-13] MEDS: CELECOXIB 200 MG CAP PO SCH ×2 (08:08→16:22)
[2017-09-13] MEDS: METOPROLOL TARTRATE 50 MG TAB PO SCH ×2 (08:08→21:25)
[2017-09-13] MEDS: LISINOPRIL 20 MG TAB PO SCH ×2 (08:09→16:22)
[2017-09-13] MEDS: HYDROMORPHONE 1MG/1ML INJ IV PRN (09:00)
[2017-09-13 12:00] VITALS: BP 131/107
[2017-09-13] MEDS: VANCOMYCIN 1GM/NS 250 ML 250 ML IV SCH (12:00)
[2017-09-13 16:00] VITALS: BP 168/115
[2017-09-13] MEDS: RIVAROXABAN 20 MG TABLET PO SCH (16:22)
[2017-09-13] MEDS: CARISOPRODOL 350 MG TAB PO PRN (19:47)
[2017-09-14] VITALS: BP 168/115
[2017-09-14] MEDS: CLINDAMYCIN HCL 150 MG CAP PO SCH ×2 (00:26→06:21)
[2017-09-14 06:19] LABS: BASOPHILS # (AUTO) 0.1 (0.0-0.1); BASOPHILS % 0.6 % (0.0-1.0); EOSINOPHILS # (AUTO) 0.7 (0.0-0.4); EOSINOPHILS % 8.1 % (0.0-6.0); HEMATOCRIT 33.2 % (38.2-49.6); HEMOGLOBIN 11.3 g/dL (14.0-18.0); LYMPHOCYTES # (AUTO) 1.6 (1.0-3.2); MEAN CORPUSCULAR HEMOGLOBIN 30.5 pg (28-32); MEAN CORPUSCULAR VOLUME 89.7 fL (81-99); MONOCYTES # (AUTO) 1.3 (0.2-0.8); MONOCYTES % 14.1 % (4.4-11.3); NEUTROPHILS # (AUTO) 5.1 (2.1-6.9); PLATELET COUNT 255 x10e3/uL (140-360)
[2017-09-14 08:00] VITALS: BP 139/93
[2017-09-14] MEDS: CELECOXIB 200 MG CAP PO SCH (08:00)
[2017-09-14] MEDS: HYDROCODONE/APAP 10MG-325MG TAB PO PRN (08:05)
[2017-09-14 08:34] LABS: ANION GAP 15.2 mmol/L (8-16); BLOOD UREA NITROGEN 19 mg/dL (7-26); BUN/CREATININE RATIO 18 (6-25); CALCIUM 9.5 mg/dL (8.4-10.2); CARBON DIOXIDE 20 mmol/L (22-29); CHLORIDE 106 mmol/L (98-107); CREATININE, SERUM 1.03 mg/dL (0.72-1.25); EST GLOMERULAR FILTRATION RATE > 60 ML/MIN (60-); GLUCOSE 109 mg/dL (74-118); POTASSIUM 4.2 mmol/L (3.5-5.1); SODIUM 137 mmol/L (136-145)
[2017-09-14] MEDS: AMLODIPINE BESYLATE 5 MG TAB PO SCH (09:00)
[2017-09-14] MEDS: DOCUSATE SODIUM 100 MG CAP PO SCH (09:00)
[2017-09-14] MEDS: METOPROLOL TARTRATE 50 MG TAB PO SCH (09:00)
[2017-09-14] MEDS: LISINOPRIL 20 MG TAB PO SCH (09:00)
[2017-09-14] MEDS ORDERED: CLINDAMYCIN HC150 MG PO (10:15)
== END 2017-09-14 11:07 | disposition home or self-care (01) | DRG 475 ==
LOC: ER 11:00 → MED/SURG2 20:15
PROVIDERS: ADMIT Internal Medicine; ATTEND Internal Medicine
PROC: 0Y680ZZ Detachment at Left Femoral Region, Open Approach (ICD-10-PCS; principal; 2017-09-10 12:00)
DX: T87.44 Infection of amputation stump, left lower extremity (principal); L03.116 Cellulitis of left lower limb; I10 Essential (primary) hypertension; L03.115 Cellulitis of right lower limb; L97.824 Non-pressure chronic ulcer of other part of left lower leg with necrosis of bone; Y83.8 Other surgical procedures as the cause of abnormal reaction of the patient, or of later complication, without mention of misadventure at the time of the procedure; Y92.029 Unspecified place in mobile home as the place of occurrence of the external cause; T87.89 Other complications of amputation stump; R21 Rash and other nonspecific skin eruption; Z79.02 Long term (current) use of antithrombotics/antiplatelets
CPT/HCPCS: 36415; 80048; 80053; 83036; 83605; 84443; 85025; 85651; 86140; 87040; 87205; 88307; 88311; 93926; 99284; J0692; J1100; J1170; J2001; J2250; J2270; J2405; J2543; J3370; J7030; J7050

== ENCOUNTER 2018-05-10 11:43 | Observation (INO) | payer OTHER ==
[2018-05-09 12:58] LABS: BASOPHILS # (AUTO) 0.1 (0.0-0.1); BASOPHILS % 0.6 % (0.0-1.0); EOSINOPHILS # (AUTO) 0.1 (0.0-0.4); EOSINOPHILS % 1.2 % (0.0-6.0); HEMATOCRIT 43.3 % (38.2-49.6); HEMOGLOBIN 14.7 g/dL (14.0-18.0); LYMPHOCYTES # (AUTO) 2.4 (1.0-3.2); LYMPHOCYTES % 25.5 % (18.0-39.1); MEAN CORPUSCULAR HEMOGLOBIN 32.3 pg (28-32); MEAN CORPUSCULAR HGB CONC 33.9 g/dL (31-35); MEAN CORPUSCULAR VOLUME 95.2 fL (81-99); MONOCYTES % 10.3 % (4.4-11.3); NEUTROPHILS # (AUTO) 5.9 (2.1-6.9); NEUTROPHILS % 61.7 % (38.7-80.0); PLATELET COUNT 237 x10e3/uL (140-360); RED BLOOD COUNT 4.55 x10e6/uL (4.3-5.7); RED CELL DISTRIBUTION WIDTH 13.3 % (11.7-14.4)
[2018-05-09 13:13] LABS: INR 0.87; PROTHROMBIN TIME 12.7 seconds (11.9-14.5)
[2018-05-09 13:20] LABS: ANION GAP 13.8 mmol/L (8-16); BLOOD UREA NITROGEN 17 mg/dL (7-26); BUN/CREATININE RATIO 14 (6-25); CALCIUM 9.8 mg/dL (8.4-10.2); CARBON DIOXIDE 25 mmol/L (22-29); CHLORIDE 100 mmol/L (98-107); CREATININE, SERUM 1.18 mg/dL (0.72-1.25); EST GLOMERULAR FILTRATION RATE > 60 ML/MIN (60-); GLUCOSE 94 mg/dL (74-118); POTASSIUM 4.8 mmol/L (3.5-5.1); SODIUM 134 mmol/L (136-145)
[~2018-05-10] VITALS: Ht 182.9 cm; Wt 85.3 kg
[~2018-05-10 11:43] MED LIST changes: +ASPIRIN325 MG PO; +CLINDAMYCIN HC150 MG PO; +ELIQUIS PO; +METOPROLOL SUCC50 MG PO; +NORCO 10-325 T1 EACH PO
[2018-05-10 12:51] VITALS: BP 148/117
[2018-05-10] MEDS ORDERED: FENTANYL CITRATE/PF 100MCG/2 ML INJ ONE ×3 (13:58→16:04)
[2018-05-10] MEDS ORDERED: MIDAZOLAM HCL 2 MG/2 ML VIAL ONE ×3 (13:58→16:04)
[2018-05-10] MEDS ORDERED: LIDOCAINE HCL 2% LOCAL 20 ML VIAL ONE (13:59)
[2018-05-10] MEDS ORDERED: BACITRACIN 50,000 UNIT VIAL ONE (13:59)
[2018-05-10] MEDS ORDERED: SODIUM CHLORIDE 0.9% 500ML 500 ML ONE (14:00)
[2018-05-10] MEDS ORDERED: SODIUM CHLORIDE 0.9% 1000ML 2,000 ML ONE (14:00)
[2018-05-10] MEDS ORDERED: CEFAZOLIN SOD 1 GM VIAL ONE ×2 (14:18)
[2018-05-10] MEDS ORDERED: SODIUM CHLORIDE 0.9% 50ML 50 ML ONE (14:18)
[2018-05-10] MEDS ORDERED: SODIUM BICARBONATE 8.4% SYRING 50 ML ONE (14:41)
[2018-05-10 15:59] VITALS: BP 162/115
[2018-05-10] MEDS ORDERED: HEPARIN SOD (PORCINE) 1000 UNIT/ML 30ML ONE (16:15)
[2018-05-10] MEDS ORDERED: IOPAMIDOL 370 MG/ML 200 ML INFUS..BTL INJ ONE (16:18)
[2018-05-10] MEDS ORDERED: NITROGLYCERIN/D5W 200 MCG/ML 250 ML ONE (16:23)
[2018-05-10] MEDS ORDERED: ASPIRIN 325 MG TAB ONE (16:29)
[2018-05-10] MEDS ORDERED: TICAGRELOR 90 MG TABLET ONE (16:29)
[2018-05-10] MEDS ORDERED: HYDROCODONE/APAP 10MG-325MG TAB PO PRN (16:45)
[2018-05-10] MEDS ORDERED: ACETAMINOPHEN/CODEINE 300MG - 30MG TAB PO PRN (16:45)
[2018-05-10] MEDS ORDERED: ONDANSETRON HCL INJ 2 MG/ML VIAL IV PRN (16:45)
[2018-05-10] MEDS ORDERED: MORPHINE SULFATE 2 MG/ML SYR IV PRN (16:45)
[2018-05-10 16:49] VITALS: BP 162/115
[2018-05-10] MEDS ORDERED: LISINOPRIL 10 MG TAB PO SCH (17:00)
[2018-05-10] MEDS: METOPROLOL SUCCINATE 50 MG TAB XL PO SCH (17:04)
[2018-05-10] MEDS: LISINOPRIL 20 MG TAB PO SCH (17:04)
[2018-05-10 17:08] VITALS: BP 162/115
--- NOTE | 2018-05-10 17:12 | NUR ---
patient received from carpenter/labor via stretcher. see admit assess. a-fib/paced rhythm. am meds given due to elevated BP. instructed not to lift left arm to avoid pulling wires. will monitor status closely.
--- NOTE | 2018-05-10 18:24 | Diagnostic Imaging Report ---
Examination: Single AP view of the chest. COMPARISON: Portable chest 08/02/2017 INDICATION: Pacemaker placement IMPRESSION: 1. Lines and Tubes: Left cardiac device with lead distal tips projecting in the right ventricle and likely coronary sinus. Upper chest 2. Lungs are grossly clear. No consolidation or effusion. 3. Cardiomediastinal silhouette is normal. Minimal central vascular congestion. 4. No acute bony abnormalities. Signed by: Dr. Mario Villasenor M.D. on 05/10/2018 6:20 PM
--- NOTE | 2018-05-10 19:00 | NUR ---
Report received from AM nurse Diego. patient comfortably resting on her bed. Denied pain and no SOB. No respiratory distress noted. Family in the bedside. Patient instructed to call for help as needed, verbalized and understand. Bed in lower position,locked. Call cadena within reach. Will continue to monitor.
[2018-05-10 20:00] VITALS: BP 162/115
[2018-05-10] MEDS: CARISOPRODOL 350 MG TAB PO SCH (21:05)
[2018-05-11] VITALS: BP 146/119
[2018-05-11 04:00] VITALS: BP 176/139
--- NOTE | 2018-05-11 05:59 | NUR ---
Patient BP 176/139(right arm) and 178/125(left arm). Paged Dr. Armendariz to notified patient's high BP. Waiting for MD's call back.
[2018-05-11] MEDS ORDERED: VANCOMYCIN 1GM/NS 250 ML 250 ML IV ONE (06:00)
--- NOTE | 2018-05-11 06:10 | Diagnostic Imaging Report ---
EXAM: CHEST SINGLE (PORTABLE), AP 1 view INDICATION: Pacer placement COMPARISON: AP view of the chest May 10, 2018 FINDINGS: LINES/TUBES: Stable position of left approach cardiac device LUNGS: No consolidations or edema. PLEURA: No effusions or pneumothorax. HEART AND MEDIASTINUM: Normal size and contour. BONES AND SOFT TISSUES: No acute findings. IMPRESSION: No interval change Signed by: Dr. Ese Marroquin M.D. on 05/11/2018 6:07 AM
--- NOTE | 2018-05-11 06:48 | NUR ---
Dr. Barber called back in the unit, ordered IV hydralazine 10mg q6PRN for BP (SBP) higher than 150 at this time.
[2018-05-11] MEDS ORDERED: HYDRALAZINE HCL 20 MG/ML VIAL IV PRN (07:00)
[2018-05-11] MEDS: LISINOPRIL 20 MG TAB PO SCH (08:05)
[2018-05-11] MEDS: CARISOPRODOL 350 MG TAB PO SCH (08:05)
[2018-05-11] MEDS: METOPROLOL SUCCINATE 50 MG TAB XL PO SCH (08:06)
[2018-05-11 08:22] VITALS: BP 160/131
[2018-05-11] MEDS ORDERED: MELOXICAM 7.5 MG TAB PO SCH (09:00)
[2018-05-11] MEDS ORDERED: ASPIRIN 325 MG TAB PO SCH (09:00)
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
[2018-05-11 11:53] VITALS: BP 132/74
[2018-05-11 11:55] VITALS: BP 156/114
--- NOTE | 2018-05-11 12:30 | NUR ---
patient becoming agitated. Dr Armendariz paged and instructed to discharge and have patient follow up in two weeks.
--- NOTE | 2018-05-22 19:22 | Operative Report ---
DATE OF PROCEDURE: May 10, 2018 PREPROCEDURAL DIAGNOSES 1. Perax-ax-xieztjc systolic and diastolic congestive heart failure, [place] [employer] functional class III. 2. Left bundle branch block with QRS duration of 160 milliseconds. 3. Symptomatic bradycardia with both sinus node dysfunction and atrioventricular block with dizziness and lightheadedness and fatigue. 4. Nonischemic cardiomyopathy with ejection fraction of 35% to 40%. POSTPROCEDURAL DIAGNOSES 1. [id number] systolic and diastolic congestive heart failure, [place] [employer] functional class III. 2. Left bundle branch block with QRS duration of 160 milliseconds. 3. Symptomatic bradycardia with both sinus node dysfunction and atrioventricular block with dizziness and lightheadedness and fatigue. 4. Nonischemic cardiomyopathy with ejection fraction of 35% to 40%. PROCEDURES PERFORMED 1. [employer] biventricular pacemaker insertion in the left pectoral region. 2. Left subclavian venogram. 3. Coronary sinus venogram. PROCEDURE IN DETAIL: Mr. Marino was brought to the metallurgy laboratory technician here at [facility] in a fasting and nonsedated state. The left pectoral region was prepped and draped in a sterile manner. A pocket was formed in the left pectoral region with a combination of electrocautery, blunt and sharp dissection. Access to the axillary vein was made to the pocket, and 2 guide wires were placed in this vein with the tips in the IVC. A 6-[place] sheath was placed over the first guide wire, through which an [employer] MRI pacing lead, model number 7742, serial number [id number], was implanted in the right ventricular apex without complications. Adequate pacing and sensing parameters were observed, and the sheath was peeled away and the lead secured to the underlying fascia with 0 silk. A 9-[place] sheath was then placed over the second guide wire, through which an LV guiding sheath with an AL-2 catheter and 0.35 Wholey wire were used to cannulate the coronary sinus. A CS venogram was then performed with a 6-[place] balloon-tipped catheter, and a large midlateral branch was visualized. An Acuity long spiral lead, model number 4677, serial number [id number], was implanted over an 0.014 [place] EDS wire through a 130-degree inner sheath into this branch. Adequate pacing and sensing parameters were noted, and the sheaths were then peeled away and the lead secured to the underlying fascia with 0 silk. The pocket was then irrigated with antibiotic-containing normal saline, and the lead was connected to a [employer] pacemaker generator, model number U128, serial number [id number]. The generator and the leads were then placed in the pocket. Of note, the atrial port was plugged. The pocket was then closed in 3 layers with 2-0 Vicryl for the deepest subcutaneous layers and 4-0 Vicryl for the skin. Dermabond was placed for additional skin approximation. Patient tolerated the procedure well. DEVICE DATA: Right ventricular lead has R waves of 6.7 mV with a threshold of 0.6 V with a pulse width of 0.4 msec and a pacing impedance of 1002 ohms. The left ventricular lead has a threshold of 1 V with a pulse width of 0.5 msec and a pacing impedance of 1051 ohms. CONCLUSION 1. Successful implantation of a [employer] biventricular pacemaker in the left pectoral region. 2. No complications. Job#: [id number] EV
== END 2018-05-11 13:06 | disposition home or self-care (01) ==
LOC: CATH LAB 11:43 → CATH LAB V 15:35 → IMCU 15:59
PROVIDERS: ADMIT Internal Medicine Clinical Cardiac Electrophysiology; ATTEND Internal Medicine Clinical Cardiac Electrophysiology
DX: I49.5 Sick sinus syndrome (principal); I50.22 Chronic systolic (congestive) heart failure; I11.0 Hypertensive heart disease with heart failure; I48.2 Chronic atrial fibrillation; Z91.81 History of falling; I49.3 Ventricular premature depolarization; Z89.512 Acquired absence of left leg below knee; I44.7 Left bundle-branch block, unspecified; Z82.49 Family history of ischemic heart disease and other diseases of the circulatory system; Z79.01 Long term (current) use of anticoagulants
CPT/HCPCS: 33207; 33225; 36415; 71045 ×2; 80048; 85025; 85610; C1769; C1887; C1898; C1900; C2621; G0378 ×2; J0360; J0690; J1644; J2001; J2250; J3370; J7030; J7040; Q9967

== ENCOUNTER → 2018-08-15 | Day surgery (SDC) | payer MEDICARE ==
[~2018-08-15] VITALS: Ht 182.9 cm; Wt 81.6 kg
[~2018-08-15] MED LIST changes: +AMIODARONE HCL200 MG PO; +FENTANYL CITRATE/PF 100MCG/2 ML INJ ONE; +LIDOCAINE HCL 2% LOCAL INJ 5 ML SDV VIAL INJ ONE; +MIDAZOLAM HCL 2 MG/2 ML VIAL ONE; +PROPOFOL IV EMULSION 10 MG/ML 20 ML VIAL ONE
[2018-08-15 09:00] VITALS: BP 143/108
--- NOTE | 2018-08-15 09:00 | NUR ---
Received patient to PACU holding room 20. Patient gowned and IV access obtained via right AC with 20 g Jelco. Blood drawn and tubed for STAT lab as ordered. at bedside. BP slightly elevated. Patient and state patient has "white coat syndrome." Will monitor closely. OR informed patient is ready for assessment.
[2018-08-15 09:24] LABS: BASOPHILS # (AUTO) 0.1 (0.0-0.1); BASOPHILS % 0.7 % (0.0-1.0); EOSINOPHILS # (AUTO) 0.1 (0.0-0.4); EOSINOPHILS % 1.1 % (0.0-6.0); HEMATOCRIT 44.4 % (38.2-49.6); HEMOGLOBIN 14.6 g/dL (14.0-18.0); INR 1.03; LYMPHOCYTES # (AUTO) 2.1 (1.0-3.2); LYMPHOCYTES % 21.2 % (18.0-39.1); MEAN CORPUSCULAR HEMOGLOBIN 31.8 pg (28-32); MEAN CORPUSCULAR HGB CONC 32.9 g/dL (31-35); MEAN CORPUSCULAR VOLUME 96.7 fL (81-99); MONOCYTES # (AUTO) 1.4 (0.2-0.8); MONOCYTES % 14.8 % (4.4-11.3); NEUTROPHILS % 61.5 % (38.7-80.0); PLATELET COUNT 232 x10e3/uL (140-360); PROTHROMBIN TIME 14.4 seconds (11.9-14.5); RED BLOOD COUNT 4.59 x10e6/uL (4.3-5.7); RED CELL DISTRIBUTION WIDTH 13.3 % (11.7-14.4)
[2018-08-15 09:35] LABS: ANION GAP 15.3 mmol/L (8-16); CALCIUM 9.3 mg/dL (8.4-10.2); CREATININE, SERUM 1.3 mg/dL (0.72-1.25); POTASSIUM 4.3 mmol/L (3.5-5.1)
== END | disposition home or self-care (01) ==
LOC: OR 08:43 → EDSTATUS 10:30
PROVIDERS: ATTEND Internal Medicine
DX: I48.91 Unspecified atrial fibrillation (principal); I10 Essential (primary) hypertension; Z95.0 Presence of cardiac pacemaker; Z79.82 Long term (current) use of aspirin; Z79.02 Long term (current) use of antithrombotics/antiplatelets; Z89.519 Acquired absence of unspecified leg below knee; Z89.619 Acquired absence of unspecified leg above knee
CPT/HCPCS: 36415; 80048; 85025; 85610; 93312; 93320; 93325; J2001; J2250; J2704

== ENCOUNTER 2022-03-06 10:41 | Outpatient (RCR) | payer MEDICARE ==
[~2022-03-06 10:41] MED LIST changes: +COLLAGENASE OINTMENT 30 GM TUBE ONE; -FENTANYL CITRATE/PF 100MCG/2 ML INJ ONE; -LIDOCAINE HCL 2% LOCAL INJ 5 ML SDV VIAL INJ ONE; +LIDOCAINE VISC 2% SOLN 15 ML UDC ONE; -MIDAZOLAM HCL 2 MG/2 ML VIAL ONE; +MINERAL OIL/PETROLAT/GLYCERI 6OZ BTL ONE; +MUPIROCIN 2% OINT 22 GM TUBE ONE; -PROPOFOL IV EMULSION 10 MG/ML 20 ML VIAL ONE
== END 2022-03-08 ==
LOC: WCC 10:41
PROVIDERS: ATTEND Internal Medicine Infectious Disease
DX: T87.44 Infection of amputation stump, left lower extremity (principal); L76.02 Intraoperative hemorrhage and hematoma of skin and subcutaneous tissue complicating other procedure; L03.115 Cellulitis of right lower limb; I87.311 Chronic venous hypertension (idiopathic) with ulcer of right lower extremity; L97.811 Non-pressure chronic ulcer of other part of right lower leg limited to breakdown of skin; I87.2 Venous insufficiency (chronic) (peripheral); R60.0 Localized edema; L08.9 Local infection of the skin and subcutaneous tissue, unspecified; I10 Essential (primary) hypertension; F41.8 Other specified anxiety disorders; R26.81 Unsteadiness on feet